=== PATIENT | female | born 1965 | race Caucasian/White ===

== ENCOUNTER 2018-02-05 00:37 | Emergency (ER) | payer MEDICARE, MEDICAID ==
[2018-02-05 01:38] LABS: EGFR Non-African American 50.3 (>60)
[2018-02-05 02:05] LABS: ABS Basophils 0.1 10^3/ul (0-0.2); ABS Eosinophils 0.2 10^3/ul (0-0.6); ABS Lymphocytes 1.1 10^3/ul (1.0-4.8); ABS Monocytes 0.6 10^3/ul (0-0.8); ABS Neutrophils 9.8 10^3/ul (1.5-7.7); ABS Nucleated RBC 0 10^3/ul; Eosinophil % 1.4 % (0-6); Hematocrit 42 % (35-47); Hemoglobin 13.9 g/dl (12.0-16.0); Lymphocyte % 9.3 % (25-47); Mean Corpuscular HGB Conc 33 g/dl (31-36); Mean Corpuscular Hemoglobin 31 pg (27-31); Mean Corpuscular Volume 93 fL (80-97); Mean Platelet Volume 9.9 um3 (7.4-10.4); Nucleated Red Blood Cells % 0.1; Platelet Count 157 10^3/ul (150-450); Red Blood Count 4.53 10^6/ul (4.00-5.40); Red Cell Distribution Width 15 % (10.5-15); White Blood Count 11.8 10^3/ul (3.5-10.8)
[2018-02-05 03:28] LABS: Urine Appearance Clear; Urine Blood Negative (Negative); Urine Color Yellow; Urine Ketones Negative (Negative); Urine Protein Negative (Negative); Urine Specific Gravity 1.014 (1.010-1.030); Urine Urobilinogen Negative (Negative)
--- NOTE | 2018-02-05 05:32 | ED ---
Massimo Cr Tariq, scribed for Adriano Aleman MD on 02/05/18 at 0114 . Substance Abuse/Use - HPI Summary HPI Summary: A 52 y/o F pt CLARK presents to the ED s/p overdose. Pt stated she took 6-8 Oxycodone 10 (325 mg) at 2000. As per triage, "Pt states "I don't know why I took them" Pt then reports taking medication d/t back pain. Oxycodone/ Acetaminophen pt consumed is not prescribed to her but rather her . EMS report PD administered "one round" of intranasal Narcal and pt aroused. quality assurance monitor applied with noted NSR and HR 79. Pt reports this is the second time she has overdosed. Dr. Aleamn in assessing pt." According to the pt, this is not the first time for substance abuse. She stated that she did not take all the oxycodone 10 pills all at once. Normally she takes Oxycodone 5 (prescribed to her), thinks she took 4-5 today. Does not think she has addiction. As per , pt took 6-8 pills over the course of the day, took regular prescription meds before bed at 2200. - History Of Current Complaint Chief Complaint: EDOverdose Stated Complaint: OVERDOSE Time Seen by Provider: 02/05/18 00:42 Hx Obtained From: Patient - Allergies/Home Medications Allergies/Adverse Reactions: Allergies Allergy/AdvReac Type Severity Reaction Status Date / Time No Known Allergies Allergy Verified 02/05/18 04:50 PMH/Surg Hx/FS Hx/Imm Hx Endocrine/Hematology History: Denies: Hx Diabetes, Hx Systemic Lupus Erythematosus Cardiovascular History: Denies: Hx Congestive Heart Failure, Hx Hypertension, Hx Pacemaker/ICD Respiratory History: Reports: Hx Asthma, Other Respiratory Problems/Disorders - OCCASIONAL WHEEZING, NONE TODAY, SMOKER Denies: Hx Pneumonia GI History: Reports: Hx Gall Bladder Disease - gall bladder removed, Hx Gastroesophageal Reflux Disease - HISTORY OF WITH NO PROBLEMS SINCE CHOLECYSTECTOMY Denies: Hx Ulcer History: Denies: Hx Dialysis, Hx Renal Disease Musculoskeletal History: Reports: Hx Arthritis - LEFT THUMB Denies: Hx Rheumatoid Arthritis Sensory History: Denies: Hx Cataracts, Hx Contacts or Glasses, Hx Vision Problem, Hx Deafness , Hx Hearing Aid Opthamlomology History: Denies: Hx Cataracts, Hx Contacts or Glasses, Hx Vision Problem Neurological History: Denies: Hx Dementia, Hx Headaches, Hx Migraine Psychiatric History: Reports: Hx Anxiety - ON MEDICATION, Hx Depression Denies: Hx Panic Disorder - Cancer History Hx Chemotherapy: No Hx Radiation Therapy: No - Surgical History Surgery Procedure, Year, and Place: shunt placement 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 BILATERAL CARPAL TUNNEL. GALLBLADDER. TUBAL LIGATION. LEFT THUMB SURGERY. X2 Hx Anesthesia Reactions: No - Immunization History Date of Tetanus Vaccine: Unk Date of Influenza Vaccine: None Infectious Disease History: No Infectious Disease History: Denies: Hx Clostridium Difficile, Hx Hepatitis, Hx Human Immunodeficiency Virus (HIV), Hx of Known/Suspected MRSA, Hx Shingles, Hx Tuberculosis, Hx Known/ Suspected VRE, Hx Known/Suspected VRSA, History Other Infectious Disease, Traveled Outside the in Last 30 Days - Social History Alcohol Use: None Substance Use Type: Reports: Marijuana, Other Substance Use Comment - Amount & Last Used: opiates Smoking Status (MU): Heavy Every Day Tobacco Smoker Review of Systems Negative: Fever All Other Systems Reviewed And Are Negative: No Physical Exam - Summary Physical Exam Summary: Appearance: Well appearing, no pain distress. Course voice. Tremulous. Skin: warm, dry, reflects adequate perfusion Head/face: normal Eyes: EOMI, ALEXANDRA ENT: normal Neck: supple, non-tender Respiratory: Diffuse scattered wheezing Cardiovascular: RRR, pulses symmetrical Abdomen: abdominal pain Bowel Sounds: present Musculoskeletal: normal, strength/ROM intact. No LE edema. No track guevara on arms Neuro: normal, sensory motor intact, A&Ox3 Psych: No SI, No HI Triage Information Reviewed: Yes Vital Signs On Initial Exam: Initial Vitals Temp Pulse Resp BP Pulse Ox 97.1 F 79 20 110/62 97 02/05/18 00:49 02/05/18 00:49 02/05/18 00:49 02/05/18 00:49 02/05/18 00:49 Vital Signs Reviewed: Yes Diagnostics - Vital Signs Vital Signs Temp Pulse Resp BP Pulse Ox 02/05/18 00:49 97.1 F 79 20 110/62 97 - Laboratory Lab Results: Lab Results 02/05/18 02/05/18 02/05/18 Range/Units 01:14 01:14 03:06 WBC 11.8 H (3.5-10.8) 10^3/ul RBC 4.53 (4.00-5.40) 10^6/ul Hgb 13.9 (12.0-16.0) g/dl Hct 42 (35-47) % MCV 93 (80-97) fL MCH 31 (27-31) pg MCHC 33 (31-36) g/dl RDW 15 (10.5-15) % Plt Count 157 (150-450) 10^3/ul MPV 9.9 (7.4-10.4) um3 Neut % (Auto) 83.7 H (38-83) % Lymph % (Auto) 9.3 L (25-47) % Johnston % (Auto) 5.1 (0-7) % Eos % (Auto) 1.4 (0-6) % Baso % (Auto) 0.5 (0-2) % Absolute Neuts (auto) 9.8 H (1.5-7.7) 10^3/ul Absolute Lymphs (auto) 1.1 (1.0-4.8) 10^3/ul Absolute Monos (auto) 0.6 (0-0.8) 10^3/ul Absolute Eos (auto) 0.2 (0-0.6) 10^3/ul Absolute Basos (auto) 0.1 (0-0.2) 10^3/ul Absolute Nucleated RBC 0 10^3/ul Nucleated RBC % 0.1 Sodium 131 L (135-145) mmol/L Potassium 4.3 (3.5-5.0) mmol/L Chloride 101 (101-111) mmol/L Carbon Dioxide 23 (22-32) mmol/L Anion Gap 7 (2-11) mmol/L BUN 10 (6-24) mg/dL Creatinine 1.14 H (0.51-0.95) mg/dL Est GFR ( Amer) 64.6 (>60) Est GFR (Non-Af Amer) 50.3 (>60) BUN/Creatinine Ratio 8.8 (8-20) Glucose 154 H (70-100) mg/dL Calcium 8.8 (8.6-10.3) mg/dL Total Bilirubin 0.20 (0.2-1.0) mg/dL AST 41 H (13-39) U/L ALT 32 (7-52) U/L Alkaline Phosphatase 97 (34-104) U/L Total Protein 6.7 (6.4-8.9) g/dL Albumin 3.8 (3.2-5.2) g/dL Globulin 2.9 (2-4) g/dL Albumin/Globulin Ratio 1.3 (1-3) TSH Pending Urine Color Urine Appearance Urine pH (5-9) Ur Specific Secretary (1.010-1.030) Urine Protein (Negative) Urine Ketones (Negative) Urine Blood (Negative) Urine Nitrate (Negative) Urine Bilirubin (Negative) Urine Urobilinogen (Negative) Ur Leukocyte Esterase (Negative) Urine Glucose (Negative) Salicylates < 2.50 (<30) mg/dL Urine Opiates Screen (None Detect) Acetaminophen 17 < 15 mcg/mL Ur Barbiturates Screen (None Detect) Ur Phencyclidine Scrn (None Detect) Ur Amphetamines Screen (None Detect) U Benzodiazepines Scrn (None Detect) Urine Cocaine Screen (None Detect) U Cannabinoids Screen (None Detect) Serum Alcohol < 10 (<10) mg/dL 02/05/18 02/05/18 Range/Units 03:15 03:15 WBC (3.5-10.8) 10^3/ul RBC (4.00-5.40) 10^6/ul Hgb (12.0-16.0) g/dl Hct (35-47) % MCV (80-97) fL MCH (27-31) pg MCHC (31-36) g/dl RDW (10.5-15) % Plt Count (150-450) 10^3/ul MPV (7.4-10.4) um3 Neut % (Auto) (38-83) % Lymph % (Auto) (25-47) % Johnston % (Auto) (0-7) % Eos % (Auto) (0-6) % Baso % (Auto) (0-2) % Absolute Neuts (auto) (1.5-7.7) 10^3/ul Absolute Lymphs (auto) (1.0-4.8) 10^3/ul Absolute Monos (auto) (0-0.8) 10^3/ul Absolute Eos (auto) (0-0.6) 10^3/ul Absolute Basos (auto) (0-0.2) 10^3/ul Absolute Nucleated RBC 10^3/ul Nucleated RBC % Sodium (135-145) mmol/L Potassium (3.5-5.0) mmol/L Chloride (101-111) mmol/L Carbon Dioxide (22-32) mmol/L Anion Gap (2-11) mmol/L BUN (6-24) mg/dL Creatinine (0.51-0.95) mg/dL Est GFR ( Amer) (>60) Est GFR (Non-Af Amer) (>60) BUN/Creatinine Ratio (8-20) Glucose (70-100) mg/dL Calcium (8.6-10.3) mg/dL Total Bilirubin (0.2-1.0) mg/dL AST (13-39) U/L ALT (7-52) U/L Alkaline Phosphatase (34-104) U/L Total Protein (6.4-8.9) g/dL Albumin (3.2-5.2) g/dL Globulin (2-4) g/dL Albumin/Globulin Ratio (1-3) TSH Urine Color Yellow Urine Appearance Clear Urine pH 5.0 (5-9) Ur Specific Secretary 1.014 (1.010-1.030) Urine Protein Negative (Negative) Urine Ketones Negative (Negative) Urine Blood Negative (Negative) Urine Nitrate Negative (Negative) Urine Bilirubin Negative (Negative) Urine Urobilinogen Negative (Negative) Ur Leukocyte Esterase Negative (Negative) Urine Glucose Negative (Negative) Salicylates (<30) mg/dL Urine Opiates Screen Presumptive positive A (None Detect) Acetaminophen mcg/mL Ur Barbiturates Screen None detected (None Detect) Ur Phencyclidine Scrn None detected (None Detect) Ur Amphetamines Screen None detected (None Detect) U Benzodiazepines Scrn None detected (None Detect) Urine Cocaine Screen None detected (None Detect) U Cannabinoids Screen Presumptive positive A (None Detect) Serum Alcohol (<10) mg/dL Result Diagrams: 02/05/18 01:14 02/05/18 01:14 Lab Statement: Any lab studies that have been ordered have been reviewed, and results considered in the medical decision making process. - EKG 0050 Cardiac Rate: NL - 68 bpm EKG Rhythm: Sinus Rhythm ST Segment: Normal - V1 and V2 EKG Interpretation: normal axis, normal interval Re-Evaluation - Re-Evaluation First Eval Re-Evaluation Time: 02:45 Comment: Drowsy, arrousable, no withdrawl Sx, narcan wore off while opioids still working. Second Eval Re-Evaluation Time: 05:17 Change: Improved Comment: patient is moving around on her own, arrousable, up and about the ED, less drowsy. Course/Dx - Course Course Of Treatment: Pt presents with minor withdrawal symptoms after Narcan. Inadvertent overdose on prescription pain medications along with Gabapentin and Alkapen. No singly large injection, nontoxic, Tylenol levels. Pt got drowsy again became after Narcan wore off require observation on telemetry and monitoring until fully sober. She used husbands prescription Percocet which is much stronger than her oxycodone. Dx of inadvertent opioid overdose, opiate abuse. Patient sobered here and return to functional capacity as demonstrated by clear speech, steady gait and logical thinking. She was provided for outpatient addiction resources. She tells me she has a therapy appointment at 10 AM today and she will discuss this with her therapist. - Diagnoses Differential Diagnosis/HQI/PQRI: Positive: Other - Intentional versus unintentional overdose, polypharmacy overdose, Tylenol toxicity Provider Diagnoses: Opiate overdose, Opiate abuse, continuous Discharge - Sign-Out/Discharge Documenting (check all that apply): Discharge/Admit/Transfer - Discharge - Discharge Plan Condition: Improved Disposition: HOME Patient Education Materials: Opioid Dependence (ED), Opioid Overdose (ED) Referrals: [facility] [Provider Group] Additional Instructions: Call today for follow-up. You have been provided with resources to help you with your addiction. See her therapist as scheduled today at 10 AM. Never take medications that are not prescribed to you. There are multiple resources within the community they can help with opiate addiction. - Billing Disposition and Condition Condition: IMPROVED Disposition: Home The documentation as recorded by the Massimo bradley Tariq accurately reflects the service I personally performed and the decisions made by me, Adriano Aleman MD.
[2018-02-05 05:42] VITALS: BP 108/71
== END 2018-02-05 05:41 | disposition home or self-care (01) ==
LOC: ED 00:37
DX: T40.601A Poisoning by unspecified narcotics, accidental (unintentional), initial encounter (principal); F11.10 Opioid abuse, uncomplicated; F41.9 Anxiety disorder, unspecified; F17.200 Nicotine dependence, unspecified, uncomplicated
CPT/HCPCS: 36415; 80053; 80307; 80320; 80329; 81003; 84443; 85025; 93005; 99285; G0480

== ENCOUNTER 2018-03-28 10:40 | Emergency (ER) | payer MEDICARE, MEDICAID ==
[2018-03-28] MEDS ORDERED: methylPREDNISolone 125 MG* 2 ML VIAL IV ONE (11:17)
[2018-03-28] MEDS ORDERED: Albuterol/Ipratropium NEB.SOL* Albuterol 2.5 MG/Ipratropium 0.5 MG 3 ML INH ONE (11:18)
[2018-03-28] MEDS ORDERED: Ondansetron INJ* 2 MG/ML VIAL IV ONE (11:19)
[2018-03-28] MEDS ORDERED: NS 0.9% 1000 ML* 1,000 ML IV ONE (11:19)
[2018-03-28 11:29] LABS: ABS Basophils 0 10^3/ul (0-0.2); ABS Eosinophils 0 10^3/ul (0-0.6); ABS Lymphocytes 0.7 10^3/ul (1.0-4.8); ABS Monocytes 0.5 10^3/ul (0-0.8); ABS Neutrophils 6.4 10^3/ul (1.5-7.7); ABS Nucleated RBC 0 10^3/ul; Eosinophil % 0.4 % (0-6); Hematocrit 43 % (35-47); Hemoglobin 14.3 g/dl (12.0-16.0); Lymphocyte % 9.5 % (25-47); Mean Corpuscular HGB Conc 34 g/dl (31-36); Mean Corpuscular Hemoglobin 30 pg (27-31); Mean Corpuscular Volume 89 fL (80-97); Mean Platelet Volume 8.6 um3 (7.4-10.4); Nucleated Red Blood Cells % 0; Platelet Count 233 10^3/ul (150-450); Red Blood Count 4.78 10^6/ul (4.00-5.40); Red Cell Distribution Width 14 % (10.5-15); White Blood Count 7.6 10^3/ul (3.5-10.8)
[2018-03-28 12:00] LABS: EGFR Non-African American 109.6 (>60)
--- OUTSIDE RECORDS SUMMARY | 2018-03-28 12:09 | XMS REPORT ---
:1965 External Reference #:[id number] Author Organization [facility] Address [address] [place] [address] Phone [phone] Care Team Providers Name Role Phone Dong Allred MD Primary Care Physician Unavailable Payers Type Date Identification Numbers Payment Provider Subscriber Medicare Primary Effective: PayID: [id number] Medicare - Bswny Ana Olsonter 2017 [address] [place] [address] Medigap Part B Expires: Policy Number: Medicaid/Computer Ana Burnham 2015 [id number] [employer] Name: 1 1 [address] PayID: [id number] [place] [address] Health Maintenance Effective: Policy Number: Blue Choice Ana Burnham [facility] (O) 05/20/[id number] [facility] Expires: 02/16/2018 PayID: [id number] [address] [address] [place] [address] Medigap Part B Effective: Policy Number: Medicaid After Ana Burnham 02/17/2018 [id number] Medicare [employer] Name: 2 1 [address] PayID: [id number] [place] [address] Problems Date Description Provider Status Onset: 08/07/2013 Headache Marnie Da Silva M.D. 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 [place] Work Status Not Currently Working Cigarette Use Current Cigarette Smoker 1 Pack Daily ETOH Use Denies alcohol use Recreational Drug Use Denies Drug Use Smoking Patient is a current smoker, smokes every day Daily Caffeine Consumes on average 2 cups of coffee per day Allergies, Adverse Reactions, Alerts Date Description Reaction Status Severity Comments 08/07/2013 NKDA active Medications Medication Date Status Form Strength Qnty SIG Indications Ordering Provider Imitrex 03/19 Active Tablets 25mg 12tab take one G43.009 Dong s pill at [facility], onset of MD migraine symptoms, can take another in 2 hours. limit 2/day. Chantix 07/24 Active Tablets 0.5mg X 53tab take as Z72.0 Tiana Starting 11 & 1 mg s directed on Marvin Kerns X 42 package ORTHOPEDIC NURSE-C insert Chantix 07/24 Active Tablets 1mg 60tab 1 by mouth R05 Tiana Continuing s twice a day Hortencia Kerns-Claudia Citalopram 07/18 Active Tablets 10mg 1 by mouth F32.9 Tiana Hydrobromide every day JANINA Kerns Montelukast 05/08 Active Tablets 10mg 30tab take one J30.9 Dong Sodium s tablet by Chalino, mouth at bedtime Betamethasone 04/13 Active Lotion 0.05% 60uni apply to Tiana Dipropionate ts nose twice Wilver daily as JUNIOR-Claudia needed Albuterol 05/22 Active Nebulizer 0.63mg/3M 75ml 3 466.0 Tiana Sulfate L milliliters Wilver, via ORTHOPEDIC NURSE-C nebulizer every 4-6 hours as needed max of four times a day Proair HFA 02/09 Active Aerosol 108(90Bas 1unit 2 puffs Dong e) s every 4-6 [facility], mcg/Act hours as MD needed Topiramate 01/10 Active Tablets 100mg 30tab take 1 R51 Dong /2013 s tablet by Chalino, mouth once MD daily Gabapentin Active Tablets 800mg take one F41.9 Unknown /0000 tablet by mouth four times a day Wellbutrin SR Active Tablets ER 300mg 1 tab po at Unknown /0000 12HR noon daily Mirtazapine Active Tablets 30mg Unknown /0000 Buspirone HCL Active Tablets 15mg 1 tab by F41.9 Unknown /0000 mouth two times a day Butalbital-Acet 07/24 Hx Tablets 50-325mg 30tab take one to Dong aminophen s two tablets Chalino, - by mouth 03/19 every 4 to hours as needed for headache Azithromycin 07/04 Hx Tablets 250mg 6tabs take 2 R05 Dong tablets by Chalino, - mouth one 07/24 time take one daily for 4 days Trimethoprim 05/08 Hx Solution 96384-5.1 10ml apply 1 drop H10.9 Vinayak Sulfate/Polymyx Unit/ML-% to affected Sabrina in B Sulfate - eye 4 times III, ORTHOPEDIC NURSE-C 07/24 daily for days Oxybutynin 02/21 Hx Tablets 5mg 60tab take one Tiana Chloride s tablet by Wilver, - mouth twice ORTHOPEDIC NURSE-C 05/08 a day for bladder spasms Detrol 01/17 Hx Tablets 2mg 60tab Take 1 Shawnti R. s Tablet By Yung, - Mouth Twice ORTHOPEDIC NURSE-C 10/15 Prednisone 12/08 Hx Tablets 20mg 14tab take 2 tabs M54.31 Tiana s by mouth Wilver, - every day x ORTHOPEDIC NURSE-C 01/17 7 Oxybutynin 09/11 Hx Tablets 5mg 60tab take one R32 Tiana Chloride s tablet by Wilver, - mouth twice ORTHOPEDIC NURSE-C 01/17 a day for bladder spasms Wellbutrin XL 07/18 Hx Tablets ER 150mg 30tab 1 by mouth Tiana 24HR s every day Wilver, - ORTHOPEDIC NURSE-C 07/18 Advair HFA 07/18 Hx Aerosol 230-21mcg 8gm 1 inhalation Tiana /Act twice daily, Wilver, - then rinse ORTHOPEDIC NURSE-C 07/24 out mouth Cefuroxime 05/08 Hx Tablets 250mg 24tab 1 by mouth J30.9 Tiana Axetil s twice a day Wilver, - x 14 days ORTHOPEDIC NURSE-C 07/18 Gabapentin 03/21 Hx Tablets 600mg 90tab take one Tiana s tablet by Wilver, - mouth three ORTHOPEDIC NURSE-C 04/13 times a day Oxycodone HCL 03/21 Hx Tablets 5mg 60tab take one Dong s tablet by Chalino, - mouth every MD 03/19 6 hours needed for pain; maximum daily dose=3 Gabapentin 03/01 Hx Capsules 300mg 180ca 2 tab po at F41.9 ps bedtime, Wilver, - then 1 tab ORTHOPEDIC NURSE-C 04/13 po in the morning and midday, as this dose is tolerated you can increase to 2 po tid Lamictal 11/03 Hx Tablets 25mg 50tab 1 tabs by Tiana s mouth every Wilver, - day x 14 ORTHOPEDIC NURSE-C 03/01 noe then tabs by mouth every day x 14 days, then 3 tabs by mouth x 1 week Xanax 09/30 Hx Tablets 0.25mg 60tab 1 by mouth s two times a Wilver, - day as ORTHOPEDIC NURSE-C 09/11 needed anxiety. Citalopram 09/30 Hx Tablets 20mg 30tab take 1 tab F32.9 Tiana Hydrobromide s po daily Wilver, - ORTHOPEDIC NURSE-C 07/18 Lorazepam 08/24 Hx Tablets 0.5mg 30thi 1 by mouth rty twice a day Wilver, - if needed ORTHOPEDIC NURSE-C 09/30 for anxiety Sertraline HCL 07/31 Hx Tablets 25mg 30tab 1 by mouth 300.00 Tiana s every day, Wilver, - replaces ORTHOPEDIC NURSE-C 08/24 cymbalta Cymbalta 07/[address] 60mg 30cap 1 by mouth Tiana Part s every day Wilver, - ORTHOPEDIC NURSE-C 08/24 Cymbalta 06/[address] 30mg 30cap 1 by mouth 300.00 Tiana Part s every day Wilver, - ORTHOPEDIC NURSE-C 06/30 Cymbalta 06/[address] 20mg 30cap take 2 by Tiana Part s mouth every Wilver, - other day ORTHOPEDIC NURSE-C 07/13 for 1 week then 1 capsule every day Clonidine HCL 06/30 Hx Tablets 0.1mg 30tab 1 by mouth 300.00 Tiana s twice a day Wilver, - or three ORTHOPEDIC NURSE-C 08/24 times a day as needed anxiety and depression Clonidine HCL 06/30 Hx Tablets 0.1mg 90tab 1 by mouth 300.00 s twice a day Wilver, - or three ORTHOPEDIC NURSE-C 08/24 times a day as needed anxiety Cymbalta 06/[address] 20mg 30cap Take 1 po Part s every other Wilver, - day for 1 ORTHOPEDIC NURSE-C 06/30 week then capsule every day Azithromycin 05/22 Hx Tablets 500mg 2tabs take 2 tabs 466.0 by mouth Wilver, - today ORTHOPEDIC NURSE-C 07/31 Prednisone 05/22 Hx Tablets 20mg 14tab take 40 mg 466.0 s po x 7 days Wilver, - ORTHOPEDIC NURSE-C 08/24 Guaifenesin-Cod 05/22 Hx Syrup 100-10mg/ 240ml 1-2 teaspoon 466.0 5ML every 4-6 Wilver, - hours as ORTHOPEDIC NURSE-C 09/24 needed Clonidine HCL 05/04 Hx Tablets 0.1mg 90tab 1 by mouth 300.00 Marnie s twice a day Jose Da Silva, - or three M.DJackie 06/17 times a day as needed anxiety and depression Oxycodone-Aceta 03/05 Hx Tablets 5-325mg 5tabs take one Tiana min every 8 Wilver, - hours for ORTHOPEDIC NURSE-C 03/21 severe /2016 headache pain Risperidone 02/09 Hx Tablets 4mg 30tab take one 311 Tiana s tablet by Wilver, - mouth at [facility] 09/24 bedtime Oxycodone-Aceta 01/08 Hx Tablets 7.5-325mg 90tab one or two Marnie minophen s every 8 Jose Da Silva, - hours M.D. 03/05 Citalopram 11/06 Hx Tablets 40mg 30tab 1 by mouth 311 Marnie Hydrobromide s every day Jose Da Silva, - M.D. 06/30 Risperidone 11/06 Hx Tablets 1mg 30tab take one to 311 Marnie s two tablets Jose Da Silva, - by mouth in M.D. 02/09 the evening Citalopram 08/29 Hx Tablets 20mg 30tab 1 po qd 311 Marnie Hydrobromide s Jose Da Silva, - M.DJackie 11/06 Gabapentin 08/07 Hx Capsules 300mg 90cap 1 po tid Marnie /2013 s Jose Da Silva, - M.D. 01/08 Oxycodone/Aceta 08/07 Hx Tablets 10-325mg 90tab one or two Marnie minophen s every 6 Jose Da Silva, - hours as M.D. 01/08 needed for pain Topamax 08/07 Hx Tablets 25mg 42tab take one 784.0 Marnie /2012 s tablet po Jose Da Silva, - daily for M.D. 08/29 one week, then increase to two tablets daily for one week, then three tablets daily for one we Clonazepam Hx Tablets 1mg take one Unknown /0000 tablet by - mouth every 03/19 8 hours as needed for anxiety; maximum daily dose=3 Immunizations CPT Code Status Date Vaccine Lot # [id number] Given 05/08/2017 Influenza Virus Vaccine, Quadrivalent, 3 Yr > [id number] Quad, Preserv Free 15640 Given 04/13/2016 Tdap (Adacel) [id number] Given 04/13/2016 Influenza Virus Vaccine, Quadrivalent, 3 Yr > [id number] Quad, Preserv Free 14357 Given 05/04/2014 Influenza Virus Vaccine, Quadrivalent, 3 Yr > [id number] Quad, Preserv Free [id number] Refused 09/26/2015 Influenza Virus Vaccine, Quadrivalent, 3 Yr > Quad , Preserv Free Vital Signs Date Vital Result Comment 03/19/2018 Weight 178.00 lb Weight in kg's 80.741 BP Systolic 128 mmHg BP Diastolic 76 mmHg Heart Rate 80 /min Body Temperature 98.3 F Respiratory Rate 16 /min 10/15/2017 Weight 170.00 lb Weight in kg's 77.112 BP Systolic 104 mmHg BP Diastolic 60 mmHg Heart Rate 73 /min Body Temperature 97.3 F Respiratory Rate 18 /min O2 % BldC Oximetry 97 % 07/24/2017 Weight 160.00 lb Weight in kg's 72.576 BP Systolic 110 mmHg BP Diastolic 80 mmHg Heart Rate 88 /min Body Temperature 98.9 F Height 59 inches 4'11" BMI (Body Mass Index) 32.3 kg/m2 O2 % BldC Oximetry 95 % 07/04/2017 Weight 163.00 lb Weight in kg's 73.937 BP Systolic 100 mmHg BP Diastolic 70 mmHg Heart Rate 84 /min Body Temperature 97.8 F Ibuprofen at 830 Respiratory Rate 24 /min O2 % BldC Oximetry 98 % 05/22/2017 Weight 152.00 lb Weight in kg's 68.947 Heart Rate 74 /min Body Temperature 97.8 F Respiratory Rate 20 /min O2 % BldC Oximetry 98 % 05/08/2017 Weight 149.00 lb Weight in kg's 67.586 Heart Rate 72 /min Body Temperature 96.8 F Respiratory Rate 20 /min Right Visual Acuity Distance 20/40 Left Visual Acuity Distance 20/30 Both Visual Acuity Distance 20/25 O2 % BldC Oximetry 96 % 01/17/2017 Weight 167.00 lb Weight in kg's 75.751 BP Systolic 120 mmHg BP Diastolic 74 mmHg Heart Rate 58 /min Body Temperature 97.5 F Respiratory Rate 16 /min 12/08/2016 Weight 163.00 lb Weight in kg's 73.937 BP Systolic 108 mmHg BP Diastolic 86 mmHg Heart Rate 68 /min Body Temperature 97.6 F Respiratory Rate 16 /min O2 % BldC Oximetry 98 % 09/11/2016 Weight 167.00 lb Weight in kg's 75.751 BP Systolic 116 mmHg BP Diastolic 78 mmHg Heart Rate 82 /min Body Temperature 97.1 F Respiratory Rate 16 /min 07/18/2016 Weight 157.00 lb Weight in kg's 71.215 BP Systolic 110 mmHg BP Diastolic 68 mmHg Heart Rate 60 /min Body Temperature 96.9 F Respiratory Rate 12 /min 05/08/2016 Weight 144.00 lb Weight in kg's 65.318 BP Systolic 100 mmHg BP Diastolic 60 mmHg Heart Rate 64 /min Body Temperature 97.7 F Respiratory Rate 20 /min 04/13/2016 Weight 139.00 lb Weight in kg's 63.050 BP Systolic 106 mmHg BP Diastolic 68 mmHg Heart Rate 80 /min Body Temperature 97.9 F Respiratory Rate 14 /min Height 60 inches 5'0" BMI (Body Mass Index) 27.1 kg/m2 03/21/2016 Weight 142.00 lb Weight in kg's 64.411 BP Systolic 120 mmHg BP Diastolic 62 mmHg Heart Rate 68 /min 02/28/2016 Weight 138.00 lb Weight in kg's 62.597 BP Systolic 100 mmHg BP Diastolic 60 mmHg Heart Rate 80 /min 02/07/2016 Weight 139.00 lb Weight in kg's 63.050 BP Systolic 110 mmHg BP Diastolic 65 mmHg Heart Rate 72 /min 09/24/2015 Weight 140.00 lb Weight in kg's 63.504 BP Systolic 96 mmHg BP Diastolic 64 mmHg Heart Rate 72 /min Height 60 inches 5'0" BMI (Body Mass Index) 27.3 kg/m2 03/01/2015 Weight 141.00 lb Weight in kg's 63.958 BP Systolic 110 mmHg BP Diastolic 80 mmHg Heart Rate 96 /min 09/30/2014 Weight 147.00 lb Weight in kg's 66.679 Heart Rate 84 /min Body Temperature 97.9 F 08/24/2014 Weight 150.00 lb Weight in kg's 68.040 BP Systolic 122 mmHg BP Diastolic 78 mmHg Heart Rate 84 /min 07/31/2014 Weight 150.00 lb Weight in kg's 68.040 BP Systolic 100 mmHg BP Diastolic 70 mmHg Heart Rate 84 /min 07/13/2014 Weight 156.00 lb Weight in kg's 70.762 BP Systolic 94 mmHg BP Diastolic 60 mmHg Heart Rate 68 /min 06/30/2014 Weight 144.00 lb Weight in kg's 65.318 BP Systolic 98 mmHg BP Diastolic 42 mmHg Heart Rate 80 /min 06/17/2014 Weight 155.00 lb Weight in kg's 70.308 BP Systolic 110 mmHg BP Diastolic 74 mmHg Heart Rate 60 /min 05/22/2014 Weight 148.00 lb Weight in kg's 67.133 BP Systolic 116 mmHg BP Diastolic 64 mmHg Heart Rate 84 /min Body Temperature 98.4 F O2 % BldC Oximetry 94 % 05/04/2014 Weight 151.00 lb Weight in kg's 68.494 BP Systolic 100 mmHg BP Diastolic 70 mmHg Heart Rate 66 /min 03/12/2014 Weight 150.00 lb Weight in kg's 68.040 BP Systolic 110 mmHg BP Diastolic 64 mmHg Heart Rate 60 /min 02/09/2014 Weight 144.00 lb Weight in kg's 65.318 BP Systolic 110 mmHg BP Diastolic 60 mmHg Heart Rate 60 /min 01/08/2014 Weight 152.00 lb Weight in kg's 68.947 BP Systolic 114 mmHg BP Diastolic 70 mmHg Heart Rate 72 /min 12/08/2013 Weight 143.00 lb Weight in kg's 64.865 BP Systolic 108 mmHg BP Diastolic 70 mmHg Heart Rate 64 /min 11/06/2013 Weight 142.00 lb With Boots On Weight in kg's 64.411 BP Systolic 108 mmHg BP Diastolic 70 mmHg Heart Rate 68 /min Last Menstrual Period [id number] 2013 Weight 148.00 lb Weight in kg's 67.133 BP Systolic 106 mmHg BP Diastolic 82 mmHg Heart Rate 88 /min Body Temperature 99.3 F O2 % BldC Oximetry 97 % 08/07/2013 Weight 150.00 lb Weight in kg's 68.040 BP Systolic 132 mmHg BP Diastolic 90 mmHg Heart Rate 72 /min Height 61 inches 5'1" BMI (Body Mass Index) 28.3 kg/m2 Results Test Date Test Result H/L Range Note CBC Auto Diff 07/04/2017 White Blood Count 5.1 10^3/uL 3.5-10.8 Red Blood Count 5.02 10^6/uL 4.0-5.4 Hemoglobin 15.1 g/dL 12.0-16.0 Hematocrit 46 % 35-47 Mean Corpuscular Volume 91 fL 80-97 Mean Corpuscular Hemoglobin 30 pg 27-31 Mean Corpuscular HGB Conc 33 g/dL 31-36 Red Cell Distribution Width 16 % High 10.5-15 Platelet Count 252 10^3/uL 150-450 Mean Platelet Volume 10 um3 7.4-10.4 Abs Neutrophils 3.5 10^3/uL 1.5-7.7 Abs Lymphocytes 0.9 10^3/uL Low 1.0-4.8 Abs Monocytes 0.6 10^3/uL 0-0.8 Abs Eosinophils 0.1 10^3/uL 0-0.6 Abs Basophils 0.1 10^3/uL 0-0.2 Abs Nucleated RBC 0 10^3/uL Granulocyte % 67.8 % 38-83 Lymphocyte % 18.3 % Low 25-47 Monocyte % 10.8 % High 1-9 Eosinophil % 1.9 % 0-6 Basophil % 1.2 % 0-2 Nucleated Red Blood Cells % 0.1 Comp Metabolic Panel 07/04/2017 Sodium 135 mmol/L 133-145 Chloride 104 mmol/L 101-111 Co2 Carbon Dioxide 26 mmol/L 22-32 Glucose 77 mg/dL 70-100 Blood Urea Nitrogen 9 mg/dL 6-24 Creatinine 0.86 mg/dL 0.51-0.95 BUN/Creatinine Ratio 10.5 8-20 Calcium 9.4 mg/dL 8.6-10.3 Total Protein 7.3 g/dL 6.4-8.9 Albumin 4.0 g/dL 3.2-5.2 Globulin 3.3 g/dL 2-4 Albumin/Globulin Ratio 1.2 1-3 Total Bilirubin 0.30 mg/dL 0.2-1.0 Alkaline Phosphatase 80 U/L 34-104 Alt 12 U/L 7-52 Ast 14 U/L 13-39 Egfr Non- 69.8 >60 Egfr 89.8 >60 1 Potassium 5.2 mmol/L High 3.5-5.0 Anion Gap 5 mmol/L 2-11 Laboratory test finding 07/04/2017 C Reactive Protein 17.20 mg/L High < 5.00 2 Lipid Profile (Trig/Chol/HDL) 07/04/2017 Triglycerides 132 mg/dL 3 Cholesterol 229 mg/dL 4 HDL Cholesterol 70.6 mg/dL 5 LDL Cholesterol 132 mg/dL 6 Laboratory test finding 05/22/2017 Strep Screen neg Neg Laboratory test finding 04/13/2016 Cytology SEE RESULT BELOW 7 HPV Rna Ww/Reflex Genotype Negative Negative 8 Laboratory test 02/07/2016 TSH (Thyroid 0.49 ?IU/mL 0.34-5.60 9, 10 finding Stimulating Horm) CBC Auto Diff 02/07/2016 White Blood Count 7.1 10^3/uL 3.5-10.8 9 Red Blood Count 5.21 10^6/uL 4.0-5.4 9 Hemoglobin 15.4 g/dL 12.0-16.0 9 Hematocrit 48 % High 35-47 9 Mean Corpuscular Volume 92 fL 80-97 9 Mean Corpuscular Hemoglobin 30 pg 27-31 9 Mean Corpuscular HGB Conc 32 g/dL 31-36 9 Red Cell Distribution Width 14 % 10.5-15 9 Platelet Count 189 10^3/uL 150-450 9 Mean Platelet Volume 10 um3 7.4-10.4 9 Abs Neutrophils 5.2 10^3/uL 1.5-7.7 9 Abs Lymphocytes 1.4 10^3/uL 1.0-4.8 9 Abs Monocytes 0.4 10^3/uL 0-0.8 9 Abs Eosinophils 0.1 10^3/uL 0-0.6 9 Abs Basophils 0 10^3/uL 0-0.2 9 Abs Nucleated RBC 0.01 10^3/uL 9 Granulocyte % 73.4 % 38-83 9 Lymphocyte % 19.4 % Low 25-47 9 Monocyte % 5.5 % 1-9 9 Eosinophil % 1.0 % 0-6 9 Basophil % 0.7 % 0-2 9 Nucleated Red Blood Cells % 0.2 9 Comp Metabolic Panel 02/07/2016 Sodium 142 mmol/L 133-145 9 Potassium 3.8 mmol/L 3.5-5.0 9 Chloride 106 mmol/L 101-111 9 Co2 Carbon Dioxide 26 mmol/L 22-32 9 Anion Gap 10 mmol/L 2-11 9 Glucose 61 mg/dL Low 70-100 9 Blood Urea Nitrogen 7 mg/dL 6-24 9 Creatinine 0.72 mg/dL 0.51-0.95 9 BUN/Creatinine Ratio 9.7 8-20 9 Calcium 9.4 mg/dL 8.6-10.3 9 Total Protein 7.3 g/dL 6.4-8.9 9 Albumin 4.2 g/dL 3.2-5.2 9 Globulin 3.1 g/dL 2-4 9 Albumin/Globulin Ratio 1.4 1-3 9 Total Bilirubin 0.30 mg/dL 0.2-1.0 9 Alkaline Phosphatase 74 U/L 34-104 9 Alt 7 U/L 7-52 9 Ast 11 U/L Low 13-39 9 Egfr Non- 86.1 >60 9 Egfr 110.7 >60 9, 11 Laboratory test finding 06/04/2015 Troponin I 0.07 ng/mL High <0.03 12 CBC Auto Diff 06/04/2015 White Blood Count 16.3 10^3/uL High 4.8-10.8 Red Blood Count 4.75 10^6/uL 4.0-5.4 Hemoglobin 14.2 g/dL 12.0-16.0 Hematocrit 45 % 35-47 Mean Corpuscular Volume 95 fL 80-97 Mean Corpuscular Hemoglobin 30 pg 27-31 Mean Corpuscular HGB Conc 32 g/dL 31-36 Red Cell Distribution Width 15 % 10.5-15 Platelet Count 208 10^3/uL 150-450 Mean Platelet Volume 10 um3 7.4-10.4 Abs Neutrophils 14.6 10^3/uL High 1.5-7.7 Abs Lymphocytes 1.0 10^3/uL 1.0-4.8 Abs Monocytes 0.5 10^3/uL 0-0.8 Abs Eosinophils 0 10^3/uL 0-0.6 Abs Basophils 0.1 10^3/uL 0-0.2 Abs Nucleated RBC 0 10^3/uL Granulocyte % 89.4 % High 38-83 Lymphocyte % 6.4 % Low 25-47 Monocyte % 3.2 % 1-9 Eosinophil % 0.3 % 0-6 Basophil % 0.7 % 0-2 Nucleated Red Blood Cells % 0 Laboratory test finding 06/04/2015 Acetaminophen 19 g/mL 13 Alcohol < 10 mg/dL <10 Salicylate < 2.50 mg/dL <30 Troponin I 0.04 ng/mL High <0.03 14 Serum HCG Qualitative Negative Negative Comp Metabolic Panel 06/04/2015 Sodium 131 mmol/L Low 133-145 Potassium 3.7 mmol/L 3.5-5.0 Chloride 99 mmol/L Low 101-111 Co2 Carbon Dioxide 29 mmol/L 22-32 Anion Gap 3 mmol/L 2-11 Glucose 118 mg/dL High 70-100 Blood Urea Nitrogen 12 mg/dL 6-24 Creatinine 1.23 mg/dL High 0.51-0.95 BUN/Creatinine Ratio 9.8 8-20 Calcium 8.8 mg/dL 8.6-10.3 Total Protein 7.3 g/dL 6.4-8.9 Albumin 4.2 g/dL 3.2-5.2 Globulin 3.1 g/dL 2-4 Albumin/Globulin Ratio 1.4 1-3 Total Bilirubin 0.30 mg/dL 0.2-1.0 Alkaline Phosphatase 92 U/L 34-104 Alt 41 U/L 7-52 Ast 60 U/L High 13-39 Egfr Non- 46.6 >60 Egfr 59.9 >60 15 Confirm Opiates (GC/MS) 07/13/2014 Urine Codeine Confirmation Negative ng/ mL 16 Urine Hydrocodone Confirm Negative ng/mL 17 Urine Hydromorphone Confirm 102 ng/mL 18 Urine Morphine Confirm Negative ng/mL 19 Urine Oxymorphone Confirm 69612 ng/mL 20 Urine Oxycodone Confirm 71732 ng/mL 21 Urine Opiates Interpretation Positive. 22 THC Confirmation Urine 07/13/2014 Urine Carboxy THC Confirm 322 ng/mL 23 Urine THC Interpretation Positive. 24 Drug Abuse 20 Urine 07/13/2014 Urine Amphetamine Negative ng/mL 25 Urine Barbiturates Negative ng/mL 26 Urine Benzodiazepines Negative ng/mL 27 Urine Cocaine Negative ng/mL 28 Urine Methadone Negative ng/mL 29 Urine Opiates Presumptive Posi <SEE NOTE> ng/mL 30 Urine Phencyclidine Negative ng/mL Cutoff: 25 Urine Tetrahydrocannabinol Presumptive Posi <SEE NOTE> ng/mL Cutoff: 20 31 Urine Oxycodone Presumptive Posi <SEE NOTE> ng/mL 32 Laboratory test finding 2013 Erythrocyte Sed Rate 30 mm/Hr High 0- 14 C Reactive Protein < 0.5 mg/dL Less than 0.5 1 Because ethnic data is not always readily available, this report includes an eGFR for both -Americans and non- Americans. The National Kidney Disease Education Program (NKDEP) does not endorse the use of the MDRD equation for patients that are not between the ages of 18 and 70, are , have extremes of body size, muscle mass, or nutritional status, or are non- or non-. According to the National Kidney Foundation, irrespective of diagnosis, the stage of the disease is based on the level of kidney function: Stage Description GFR(mL/min/1.73 m(2)) 1 Kidney damage with normal or decreased GFR 90 2 Kidney damage with mild decrease in GFR 60-89 3 Moderate decrease in GFR 30-59 4 Severe decrease in GFR 15-29 5 Kidney failure <15 (or dialysis) 2 Acute inflammation: >10.00 3 Desirable: <150 Borderline High: 150-199 High: 200-499 Very High: >500 4 Desirable: <200 Borderline High: 200-239 High: >239 5 Low: <40 Desirable: 40-60 High: >60 6 Desirable: <100 Near Optimal: 100-129 Borderline High: 130-159 High: 160-189 Very High: >189 7 SEE RESULT BELOW Name: ANA ESQUIVEL : [address]: Tiana Kerns NP Acct: [id number] Unit: [id number] AGE: 50 Location: [facility] Re04/13/16 SEX: F Status: REG REF SPEC: [id number] WOODY: 04/13/16-[address] [facility] [address]: Tiana Kerns NP REQ: [id number] RECD: 04/13/161201 STATUS: SOUT _ ORDERED: IMAGE ANALYSIS, HPV/Thin Prep, HPV 16/18 GENE COMMENTS: [id number] FINAL DIAGNOSIS Negative for Intraepithelial lesion or Malignancy A. Ectocervical/Endocervical Specimen Adequacy: Satisfactory of evaluation Transformation zone component identified Patient Information: HPV: High risk HPV RNA testing regardless of pap results. HPV 16/18 Genotype Reflex Actual Specimen Date: 04/13/16 Spec Date if unknown: unknown Date Time Test Result Flag (u) Normal Range 04/13/16 1002 HPV RNA RFLX GE Negative Negative The high-risk HPV types detected by the assay include: 16, 18, 31, 33, 35, 39, 45, 51, 52, 56, 58, 59, 66, and 68. Signed (signature on file) CHRISTO Webb([facility]) 04/14 1539 This Pap test was evaluated with the assistance of the [employer] Test Imaging System. Due to cytologic findings at the cigarette and filter chief inspector microscope, comprehensive manual rescreening by a Park Attendant may be required. The Pap Smear is a screening test designed to aid in the detection of premalignant and malignant conditions of the uterine cervix. It is not a diagnostic procedure and should not be used as the sole means of detecting cervical cancer. Both false- positive and false- negative reports do occur. Depending on your risk status, a Pap smear should be obtained and evaluated every 1-3 years. END OF REPORT * ML=Testing performed at Main Lab DEPARTMENT OF PATHOLOGY, [address] [place] [address] Jim Krishnamurthy M.D. Director [facility] # [id number] 8 The high-risk HPV types detected by the assay include: 16, 18, 31, 33, 35, 39, 45, 51, 52, 56, 58, 59, 66, and 68. 9 [id number] 10 [id number] 11 Because ethnic data is not always readily available, this report includes an eGFR for both -Americans and non- Americans. The National Kidney Disease Education Program (NKDEP) does not endorse the use of the MDRD equation for patients that are not between the ages of 18 and 70, are , have extremes of body size, muscle mass, or nutritional status, or are non- or non-. According to the National Kidney Foundation, irrespective of diagnosis, the stage of the disease is based on the level of kidney function: Stage Description GFR(mL/min/1.73 m(2)) 1 Kidney damage with normal or decreased GFR 90 2 Kidney damage with mild decrease in GFR 60-89 3 Moderate decrease in GFR 30-59 4 Severe decrease in GFR 15-29 5 Kidney failure <15 (or dialysis) 12 Reference Range and Interpretation: TnI (ng/mL) Interpretation Less Than 0.03 ng/mL Not supportive of diagnosis of OR 0.03 - 0.50 ng/mL Indeterminate: suggest serial studies if clinically indicated. Greater than 0.5 ng/mL Consistent with diagnosis of OR 13 Therapeutic concentration: <50 ug/mL Toxic concentration: >120 ug/mL 14 Reference Range and Interpretation: TnI (ng/mL) Interpretation Less Than 0.03 ng/mL Not supportive of diagnosis of [place] 0.03 - 0.50 ng/mL Indeterminate: suggest serial studies if clinically indicated. Greater than 0.5 ng/mL Consistent with diagnosis of [place] 15 Because ethnic data is not always readily available, this report includes an eGFR for both -Americans and non- Americans. The National Kidney Disease Education Program (NKDEP) does not endorse the use of the MDRD equation for patients that are not between the ages of 18 and 70, are , have extremes of body size, muscle mass, or nutritional status, or are non- or non-. According to the National Kidney Foundation, irrespective of diagnosis, the stage of the disease is based on the level of kidney function: Stage Description GFR(mL/min/1.73 m(2)) 1 Kidney damage with normal or decreased GFR 90 2 Kidney damage with mild decrease in GFR 60-89 3 Moderate decrease in GFR 30-59 4 Severe decrease in GFR 15-29 5 Kidney failure <15 (or dialysis) 16 REFERENCE VALUE Cutoff: 100 17 REFERENCE VALUE Cutoff: 100 18 REFERENCE VALUE Cutoff: 100 19 REFERENCE VALUE Cutoff: 100 20 REFERENCE VALUE Cutoff: 100 21 REFERENCE VALUE Cutoff: 100 22 ADDITIONAL INFORMATION This report is intended for use in clinical monitoring and management of patients. It is not intended for use in employment-related testing. Test Performed by: [address] [address] [facility] [employer] [facility] Center: Dwight Thibodeaux M.D. 23 REFERENCE VALUE Cutoff: 3.0 24 ADDITIONAL INFORMATION This report is intended for use in clinical monitoring and management of patients. It is not intended for use in employment-related testing. Test Performed by: [address] [address] [employer] [facility] Center: Dwight Thibodeaux M.D. 25 REFERENCE VALUE Cutoff: 500 26 REFERENCE VALUE Cutoff: 200 27 REFERENCE VALUE Cutoff: 200 28 REFERENCE VALUE Cutoff: 150 29 REFERENCE VALUE Cutoff: 150 30 Presumptive Positive Drug confirmation to follow. Presumptive Positive means that the screening method is positive, but the test needs to be run by a confirmatory method before being finalized. REFERENCE VALUE Cutoff: 300 31 Presumptive Positive Drug confirmation to follow. Presumptive Positive means that the screening method is positive, but the test needs to be run by a confirmatory method before being finalized. ADDITIONAL INFORMATION This report is intended for use in clinical monitoring or management of patients. It is not intended for use in employment-related testing. 32 Presumptive Positive REVISED RESULTS Drug confirmation to follow. Presumptive Positive means that the screening method is positive, but the test needs to be run by a confirmatory method before being finalized. REFERENCE VALUE Cutoff: 100 ADDITIONAL INFORMATION This report is intended for use in clinical monitoring or management of patients. It is not intended for use in employment-related testing. PREVIOUSLY REPORTED CheckScreenResults (Reported 07/15/2014 12:36) Test Performed by: [address] [address] [employer] [facility] Center: Dwight Thibodeaux M.D. Procedures Date CPT Code Description Status 08/20/2015 Mammogram Completed 05/22/2014 22645 Nebulizer Treatment Completed Encounters Type Date Location Provider CPT E/M Dx Office Visit 10/15/2017 10:30a [place] [address] R51 M54.9 F43.12 Office Visit 07/24/2017 11:00a Main Office Tiana Kerns ORTHOPEDIC NURSE-Claudia 31279 R05 Z72.0 Office Visit 07/04/2017 10:45a [place] [address] R05 Z13.6 Office Visit 05/22/2017 11:30a Main Office Vinayak Bennett III, ORTHOPEDIC NURSE-C 23928 J06.9 Office Visit 05/08/2017 2:45p Main Office Vinayak Bennett III, ORTHOPEDIC NURSE-C 23538 H10.9 Z23 Office Visit 01/17/2017 9:00a Main Office Tianajoaquín Kerns ORTHOPEDIC NURSE-C 77869 R51 M54.9 Office Visit 12/08/2016 11:30a Main Office Tiana Kerns ORTHOPEDIC NURSE-C 72138 M54.31 Office Visit 09/11/2016 3:15p Main Office FLOR KelseyP-C 31741 G89.29 F32.9 R32 Office Visit 07/18/2016 10:45a Main Office JUNIOR Kelsey-C 26012 F32.9 G89.29 R06.2 Office Visit 05/08/2016 10:00a Main Office Tiana Kerns ORTHOPEDIC NURSE-C 20269 F41.9 J30.9 Office Visit 04/13/2016 9:00a Main Office JUNIOR Kelsey-C 38590 Z00.00 F41.9 Z23 Office Visit 03/21/2016 11:45a Main Office JUNIOR Kelsey-C 79609 F41.9 R41.3 Office Visit 02/28/2016 10:00a Main Office Tiana Kerns ORTHOPEDIC NURSE-C 89799 F41.9 R41.3 Office Visit 02/07/2016 11:00a Main Office Tiana Kerns ORTHOPEDIC NURSE-C 57738 G06.1 F41.9 Office Visit 09/24/2015 4:00p Main Office JUNIOR Kelsey-C 83391 G06.1 F41.9 Office Visit 03/01/2015 9:30a Main Office Tiana Kerns ORTHOPEDIC NURSE-C 68244 300.00 Office Visit 09/30/2014 10:00a Main Office Tiana Kerns ORTHOPEDIC NURSE-C 90268 300.00 780.93 Office Visit 08/24/2014 11:30a Main Office Tiana Kerns ORTHOPEDIC NURSE-C 26748 300.00 Office Visit 07/31/2014 9:30a Main Office Tiana Kerns ORTHOPEDIC NURSE-C 55013 300.00 Office Visit 07/13/2014 10:45a Main Office Tiana Kerns ORTHOPEDIC NURSE-C 07690 300.00 784.0 338.4 Office Visit 06/30/2014 10:30a Main Office Tiana Kerns ORTHOPEDIC NURSE-C 84076 300.00 Office Visit 06/17/2014 3:45p Main Office Tiana Kerns ORTHOPEDIC NURSE-C 74585 300.00 784.0 786.07 Office Visit 05/22/2014 2:30p Main Office Tiana Kerns ORTHOPEDIC NURSE-C 58508 466.0 Office Visit 05/04/2014 3:15p Main Office Marnie Da Silva M.D. 61199 784.0 311 300.00 V04.81 Office Visit 03/12/2014 3:00p Main Office Marnie Da Silva M.D. 17703 784.0 311 Office Visit 02/09/2014 9:30a Main Office Marnie Da Silva M.D. 03258 784.0 311 305.1 519.11 Office Visit 01/08/2014 10:15a Main Office Marnie Da Silva M.D. 12343 784.0 311 305.1 Office Visit 12/08/2013 9:45a Main Office Marnie Da Silva M.D. 53077 784.0 311 305.1 Office Visit 11/06/2013 9:30a Main Office Marnie Da Silva M.D. 98554 784.0 324.1 311 Office Visit 2013 10:15a Main Office Marnie Da Silva M.D. 10572 784.0 324.1 305.1 311 730.20 Office Visit 08/07/2013 9:15a Main Office Marnie Da Silva M.D. 59034 784.0 324.1 305.1 Plan of Care 03/19/2018 - Dong Allred, F41.9 Anxiety disorder, unspecifiedComments: She has switched over to nonaddictive, not controlled substances with the assistance of psychiatry. She is doing alright for right now.G43.009 Migraine w/ o aura, not intractable, w/o status migrainosusNew Medication:Imitrex 25 mgComments:The only controlled substance left on her medication list is butalbital. She has never tried more modern treatment like Imitrex. Her migraines are occasional, she is willing to make the switch.I sent in a prescription for Imitrex.T40.4x1A Poisoning by oth synthetic narcotics, accidental, initComments:Life-threatening overdose on prescribe narcotics-her is as well as her .She is taking steps to try to preserve her life by avoiding further prescriptions and getting into treatment.She will continue to work with [employer]F11.23 Opioid dependence with withdrawal
--- OUTSIDE RECORDS SUMMARY | 2018-03-28 12:09 | XMS REPORT ---
:1965 External Reference #:[id number] Author Organization Formerly [facility], [facility]–1983 Address [address] [place] [address] Phone [phone] Care Team Providers Name Role Phone Dong Allred MD Primary Care Physician Unavailable Payers Type Date Identification Numbers Payment Provider Subscriber Medicare Primary Effective: PayID: [id number] Medicare - Bswny Ana Olsonter 2017 [address]md [address] [place] [address] Medigap Part B Expires: Policy Number: Medicaid/Computer Ana Burnham 2015 [id number] [employer] Name: 1 1 [address] PayID: [id number] [place] [address] Health Maintenance Effective: Policy Number: Blue Choice Ana Burnham [facility] (O) 05/20/[id number] [facility] Expires: 02/16/2018 PayID: [id number] [address] [address] [place] [address] Medigap Part B Effective: Policy Number: Medicaid After Ana Burnham 02/17/2018 [id number] [employer] Name: 2 1 [address] PayID: [id number] [place] [address] Problems Date Description Provider Status Onset: 08/07/2013 Headache Marnie Da Silva M.D. 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 Active Family History Date Family Member(s) Problem(s) Comments Father due to CHF () Father Hypertension Father due to GA () Father Hypercholesterolemia Mother Cancer, Breast First Brother Atrial Fibrillation First Brother CAD First Brother GA Social History Type Date Description Comments Marital Status Smoke-Free Home is not smoke-free Occupation [employer] in the [place] Work Status Not [...] take one G43.009 Dong s pill at [facility], onset of MD migraine symptoms, can take another in 2 hours. limit 2/day. Chantix 07/24 Active Tablets 0.5mg X 53tab take as Z72.0 Tiana Starting 11 & 1 mg s directed on Marvin Kerns X 42 package HAM ROLLING MACHINE OPERATOR-C insert Chantix 07/24 Active Tablets 1mg 60tab [...] 466.0 Tiana Sulfate L milliliters Wilver, via HAM ROLLING MACHINE OPERATOR-C nebulizer every 4-6 hours as needed max of four times a day Proair HFA 02/09 Active Aerosol 108(90Bas 1unit 2 puffs Dong e) s every 4-6 [facility], mcg/Act hours as MD needed Topiramate 01/10 [...] for 4 days Trimethoprim 05/08 Hx Solution 22593-9.1 10ml apply 1 drop H10.9 Vinayak Sulfate/Polymyx Unit/ML-% to affected Sabrina in B Sulfate - eye 4 times III, HAM ROLLING MACHINE OPERATOR-C 07/24 daily for days Oxybutynin 02/21 Hx Tablets 5mg 60tab take one Tiana Chloride s tablet by Wilver, - mouth twice HAM ROLLING MACHINE OPERATOR-C 05/08 a day for bladder spasms Detrol 01/17 Hx Tablets 2mg 60tab Take 1 Shawnti R. s Tablet By Yung, - Mouth Twice HAM ROLLING MACHINE OPERATOR-C 10/15 Prednisone 12/08 Hx Tablets 20mg 14tab take 2 tabs M54.31 Tiana s by mouth Wilver, - every day x HAM ROLLING MACHINE OPERATOR-C 01/17 7 Oxybutynin 09/11 Hx Tablets 5mg 60tab take one R32 Tiana Chloride s tablet by Wilver, - mouth twice HAM ROLLING MACHINE OPERATOR-C 01/17 a day for bladder spasms Wellbutrin XL 07/18 Hx Tablets ER 150mg 30tab 1 by mouth Tiana 24HR s every day Wilver, - HAM ROLLING MACHINE OPERATOR-C 07/18 Advair HFA 07/18 Hx Aerosol 230-21mcg 8gm 1 inhalation Tiana /Act twice daily, Wilver, - then rinse HAM ROLLING MACHINE OPERATOR-C 07/24 out mouth Cefuroxime 05/08 Hx Tablets 250mg 24tab 1 by mouth J30.9 Tiana Axetil s twice a day Wilver, - x 14 days HAM ROLLING MACHINE OPERATOR-C 07/18 Gabapentin 03/21 Hx Tablets 600mg 90tab take one Tiana s tablet by Wilver, - mouth three HAM ROLLING MACHINE OPERATOR-C 04/13 times a day Oxycodone HCL 03/21 Hx Tablets 5mg 60tab take one Dong s tablet by Chalino, - mouth every MD 03/19 6 hours needed for pain; maximum daily dose=3 Gabapentin 03/01 Hx Capsules 300mg 180ca 2 tab po at F41.9 ps bedtime, Wilver, - then 1 tab HAM ROLLING MACHINE OPERATOR-C 04/13 po in the morning and midday, as this dose is tolerated you can increase to 2 po tid Lamictal 11/03 Hx Tablets 25mg 50tab 1 tabs by Tiana s mouth every Wilver, - day x 14 HAM ROLLING MACHINE OPERATOR-C 03/01 noe then tabs by mouth every day x 14 days, then 3 tabs by mouth x 1 week Xanax 09/30 Hx Tablets 0.25mg 60tab 1 by mouth s two times a Wilver, - day as HAM ROLLING MACHINE OPERATOR-C 09/11 needed anxiety. Citalopram 09/30 Hx Tablets 20mg 30tab take 1 tab F32.9 Tiana Hydrobromide s po daily Wilver, - HAM ROLLING MACHINE OPERATOR-C 07/18 Lorazepam 08/24 Hx Tablets 0.5mg 30thi 1 by mouth rty twice a day Wilver, - if needed HAM ROLLING MACHINE OPERATOR-C 09/30 for anxiety Sertraline HCL 07/31 Hx Tablets 25mg 30tab 1 by mouth 300.00 Tiana s every day, Wilver, - replaces HAM ROLLING MACHINE OPERATOR-C 08/24 cymbalta Cymbalta 07/[address] 60mg 30cap 1 by mouth Tiana Part s every day Wilver, - HAM ROLLING MACHINE OPERATOR-C 08/24 Cymbalta 06/[address] 30mg 30cap 1 by mouth 300.00 Tiana Part s every day Wilver, - HAM ROLLING MACHINE OPERATOR-C 06/30 Cymbalta 06/[address] 20mg 30cap take 2 by Tiana Part s mouth every Wilver, - other day HAM ROLLING MACHINE OPERATOR-C 07/13 for 1 week then 1 capsule every day Clonidine HCL 06/30 Hx Tablets 0.1mg 30tab 1 by mouth 300.00 Tiana s twice a day Wilver, - or three HAM ROLLING MACHINE OPERATOR-C 08/24 times a day as needed anxiety and depression Clonidine HCL 06/30 Hx Tablets 0.1mg 90tab 1 by mouth 300.00 s twice a day Wilver, - or three HAM ROLLING MACHINE OPERATOR-C 08/24 times a day as needed anxiety Cymbalta 06/[address] 20mg 30cap Take 1 po Part s every other Wilver, - day for 1 HAM ROLLING MACHINE OPERATOR-C 06/30 week then capsule every day Azithromycin 05/22 Hx Tablets 500mg 2tabs take 2 tabs 466.0 by mouth Wilver, - today HAM ROLLING MACHINE OPERATOR-C 07/31 Prednisone 05/22 Hx Tablets 20mg 14tab take 40 mg 466.0 s po x 7 days Wilver, - HAM ROLLING MACHINE OPERATOR-C 08/24 Guaifenesin-Cod 05/22 Hx Syrup 100-10mg/ 240ml 1-2 teaspoon 466.0 5ML every 4-6 Wilver, - hours as HAM ROLLING MACHINE OPERATOR-C 09/24 needed Clonidine HCL 05/04 Hx Tablets 0.1mg 90tab 1 by mouth 300.00 Marnie s twice a day Jose Da Silva, - or three M.DJackie 06/17 times a day as needed anxiety and depression Oxycodone-Aceta 03/05 Hx Tablets 5-325mg 5tabs take one Tiana min every 8 Wilver, - hours for HAM ROLLING MACHINE OPERATOR-C 03/21 severe /2016 headache pain Risperidone 02/09 Hx Tablets 4mg 30tab take one 311 Tiana s tablet by Wilver, - mouth at [facility] 09/24 bedtime Oxycodone-Aceta 01/08 Hx Tablets [...] CPT Code Status Date Vaccine Lot # [id number] Given 05/08/2017 Influenza Virus Vaccine, Quadrivalent, 3 Yr > [id number] Quad, Preserv Free 89973 Given 04/13/2016 Tdap (Adacel) [id number] 33064 Given 04/13/2016 Influenza Virus Vaccine, Quadrivalent, 3 Yr > [id number] Quad, Preserv Free 15509 Given 05/04/2014 Influenza Virus Vaccine, Quadrivalent, 3 Yr > [id number] Quad, Preserv Free 50072 Refused 09/26/2015 Influenza Virus Vaccine, Quadrivalent, 3 Yr > Quad , Preserv Free Vital Signs Date Vital Result Comment 03/28/2018 BP Systolic 130 mmHg BP Diastolic 80 mmHg Heart Rate 84 /min Body Temperature 98.4 F Respiratory Rate 24 /min O2 % BldC Oximetry 94 % 03/19/2018 Weight 178.00 lb Weight in kg's [...] Heart Rate 68 /min Last Menstrual Period [id number] 2013 Weight 148.00 lb Weight in kg's [...] Confirm Negative ng/mL 19 Urine Oxymorphone Confirm 73996 ng/mL 20 Urine Oxycodone Confirm 45024 ng/mL 21 Urine Opiates Interpretation Positive. 22 [...] High: >189 7 SEE RESULT BELOW Name: ESQUIVELANA GEN : [address]: Tiana Kerns NP Acct: [id number] Unit: [id number] AGE: 50 Location: [facility] Re04/13/16 SEX: F Status: REG REF SPEC: [id number] WOODY: 04/13/16-[address]: Tiana Kerns NP REQ: [id number] RECD: 04/13/16120 STATUS: SOUT _ ORDERED: IMAGE ANALYSIS, HPV/Thin Prep, HPV 16/18 GENE COMMENTS: [id number] FINAL DIAGNOSIS Negative for Intraepithelial lesion or [...] and 68. Signed (signature on file) CHRISTO Webb(ASCP) 04/14 1539 This Pap test was evaluated with the assistance of the Glancep Test Imaging System. Due to cytologic findings at the hydraulic repairer microscope, comprehensive manual rescreening by a Multi Care Technician may be required. The Pap Smear is [...] performed at Main Lab DEPARTMENT OF PATHOLOGY, [address] [place] [address] Jim Krishnamurthy M.D. Director [facility] # [id number] 8 The high-risk HPV types detected by the assay include: 16, 18, 31, 33, 35, 39, 45, 51, 52, 56, 58, 59, 66, and 68. 9 [id number] 10 [id number] 11 Because ethnic data is not always [...] 0.03 ng/mL Not supportive of diagnosis of [place] 0.03 - 0.50 ng/mL Indeterminate: suggest serial studies if clinically indicated. Greater than 0.5 ng/mL Consistent with diagnosis of GA 13 Therapeutic concentration: <50 ug/mL Toxic concentration: >120 ug/mL 14 Reference Range and Interpretation: TnI (ng/mL) Interpretation Less Than 0.03 ng/mL Not supportive of diagnosis of GA 0.03 - 0.50 ng/mL Indeterminate: suggest serial studies if clinically indicated. Greater than 0.5 ng/mL Consistent with diagnosis of GA 15 Because ethnic data is not always [...] use in employment-related testing. Test Performed by: [place] [address] Railroad Maintenance Clerk: Dwight Thibodeaux M.D. 23 REFERENCE VALUE Cutoff: 3.0 24 ADDITIONAL INFORMATION This report is intended for use in clinical monitoring and management of patients. It is not intended for use in employment-related testing. Test Performed by: [address] [address] Railroad Maintenance Clerk: Dwight Thibodeaux M.D. 25 REFERENCE VALUE Cutoff: [...] CheckScreenResults (Reported 07/15/2014 12:36) Test Performed by: [address] [address] Railroad Maintenance Clerk: Dwight Thibodeaux M.D. Procedures Date CPT Code Description Status 08/20/2015 Mammogram Completed 05/22/2014 23638 Nebulizer Treatment Completed Encounters Type Date Location Provider CPT E/M Dx Office Visit 03/28/2018 9:30a Main Office JANINA Beverly 50266 R06.03 Office Visit 03/19/2018 1:45p [place] [address] F41.9 G43.009 T40.4x1A F11.23 Office Visit 10/15/2017 10:30a [place] [address] R51 M54.9 F43.12 Office Visit 07/24/2017 11:00a Main Office Tiana Kerns HAM ROLLING MACHINE OPERATOR-C 63008 R05 Z72.0 Office Visit 07/04/2017 10:45a [place] [address] R05 Z13.6 Office Visit 05/22/2017 11:30a Main Office Vinayak Bennett III HAM ROLLING MACHINE OPERATOR-C 87353 J06.9 Office Visit 05/08/2017 2:45p Main Office Vinayak Bennett III HAM ROLLING MACHINE OPERATOR-C 01800 H10.9 Z23 Office Visit 01/17/2017 9:00a Main Office Tiana Kerns HAM ROLLING MACHINE OPERATOR-C 72634 R51 M54.9 Office Visit 12/08/2016 11:30a Main Office Tiana Kerns HAM ROLLING MACHINE OPERATOR-C 47480 M54.31 Office Visit 09/11/2016 3:15p Main Office JUNIOR Kelsey-C 34709 G89.29 F32.9 R32 Office Visit 07/18/2016 10:45a Main Office JUNIOR Kelsey-C 24643 F32.9 G89.29 R06.2 Office Visit 05/08/2016 10:00a Main Office Tiana Kerns HAM ROLLING MACHINE OPERATOR-C 97648 F41.9 J30.9 Office Visit 04/13/2016 9:00a Main Office Tiana Kerns HAM ROLLING MACHINE OPERATOR-C 88785 Z00.00 F41.9 Z23 Office Visit 03/21/2016 11:45a Main Office JUNIOR Kelsey-C 02922 F41.9 R41.3 Office Visit 02/28/2016 10:00a Main Office Tiana Kerns HAM ROLLING MACHINE OPERATOR-C 26660 F41.9 R41.3 Office Visit 02/07/2016 11:00a Main Office Tiana Kerns HAM ROLLING MACHINE OPERATOR-C 26804 G06.1 F41.9 Office Visit 09/24/2015 4:00p Main Office Tiana Kersn HAM ROLLING MACHINE OPERATOR-C 65321 G06.1 F41.9 Office Visit 03/01/2015 9:30a Main Office Tiana Kerns HAM ROLLING MACHINE OPERATOR-C 23868 300.00 Office Visit 09/30/2014 10:00a Main Office Tiana Kerns HAM ROLLING MACHINE OPERATOR-C 36444 300.00 780.93 Office Visit 08/24/2014 11:30a Main Office Tiana Kerns HAM ROLLING MACHINE OPERATOR-C 90863 300.00 Office Visit 07/31/2014 9:30a Main Office Tiana Kerns HAM ROLLING MACHINE OPERATOR-C 82930 300.00 Office Visit 07/13/2014 10:45a Main Office JUNIOR Kelsey-C 26162 300.00 784.0 338.4 Office Visit 06/30/2014 10:30a Main Office Tiana Kerns HAM ROLLING MACHINE OPERATOR-C 09196 300.00 Office Visit 06/17/2014 3:45p Main Office FLOR KelseyP-C 57904 300.00 784.0 786.07 Office Visit 05/22/2014 2:30p Main Office Tiana Kerns HAM ROLLING MACHINE OPERATOR-C 10747 466.0 Office Visit 05/04/2014 3:15p Main Office Marnie Da Silva M.D. 40928 784.0 311 300.00 V04.81 Office Visit 03/12/2014 3:00p Main Office Marnie Da Silva M.D. 40026 784.0 311 Office Visit 02/09/2014 9:30a Main Office Marnie Da Silva M.D. 83440 784.0 311 305.1 519.11 Office Visit 01/08/2014 10:15a Main Office Marnie Da Silva M.D. 81087 784.0 311 305.1 Office Visit 12/08/2013 9:45a Main Office Marnie Da Silva M.D. 70989 784.0 311 305.1 Office Visit 11/06/2013 9:30a Main Office Marnie Da Silva M.D. 73151 784.0 324.1 311 Office Visit 2013 10:15a Main Office Marnie Da Silva M.D. 89894 784.0 324.1 305.1 311 730.20 Office Visit 08/07/2013 9:15a Main Office Marnie Da Silva M.D. 72241 784.0 324.1 305.1 Plan of Care 03/28/2018 - Tarsha Barragan, HAM ROLLING MACHINE OPERATOR-CR06.03 Acute respiratory distressComments: no change in respiratory status with duoneb, oxygen saturation decreased, struggling to maintain oxygenation. discussed ER and she is agreeable, declines EMS, ER charge nurse notified that she is on her way
--- NOTE | 2018-03-28 12:47 | RAD ---
INDICATION: Shortness of breath. COMPARISON: Chest x-ray dated July 04, 2017 TECHNIQUE: PA and lateral views of the chest were obtained. FINDINGS: The heart and mediastinum are normal in size and contour. Again seen is lower lobe predominant increased intralobular thickening. There are no focal nodules or lobar consolidation. The medium and small airways exhibit mild bronchiectatic dilatation. Visualized bones are normal for the patient's age. There is no radiographic evidence of free air beneath the diaphragm IMPRESSION: CHRONIC APPEARANCE OF INCREASED INTERSTITIAL MARKINGS COULD BE DUE TO PULMONARY EDEMA OR INTERSTITIAL LUNG DISEASE.
[2018-03-28] MEDS ORDERED: Ibuprofen TAB* 600 MG PO ONE (13:35)
[2018-03-28] MEDS ORDERED: Ibuprofen TAB* 600 MG ONE (13:36)
[2018-03-28 14:35] VITALS: BP 112/69
--- NOTE | 2018-03-28 15:45 | ED ---
Shortness of Breath - HPI Summary HPI Summary: Patient is a 52-year-old smoker with history of COPD, opiate use and opiate overdose presenting to the ED with worsening shortness of breath over the past day. She states she has been using her at home nebulizer treatments without relief. Endorses cough with production, yellow sputum. Denies any fevers, however endorses intermittent chills. Denies any sweats. She endorses intermittent nausea when she is unable to take a deep breath. She denies any other health concerns and denies a cardiac history. Partner is at bedside. She endorses wheezing without rhonchi. She states this is normal for her, but she feels this is been worsening. She is close follow-up with her PCP, Dr. Allred. - History of Current Complaint Chief Complaint: EDUpperRespComplaint Time Seen by Provider: 03/28/18 11:06 Hx Obtained From: Patient Onset/Duration: Gradual Onset Timing: Constant Current Severity: Moderate Dyspnea At: Rest Associated Signs & Symptoms: Cough (Productive) - Risk Factors Pulmonary Embolism: Negative Cardiac: Negative Pseudomonas: Negative Tuberculosis: Negative - Allergy/Home Medications Allergies/Adverse Reactions: Allergies Allergy/AdvReac Type Severity Reaction Status Date / Time No Known Allergies Allergy Verified 03/28/18 11:02 Home Medications: Home Medications Albuterol HFA INHALER* [Ventolin HFA Inhaler*] 2 puff INH Q4H PRN 03/28/18 [ History Confirmed 03/28/18] Buprenorphine HCl/Naloxone HCl [Suboxone 8 mg-2 mg Sl Film] 1 each SL DAILY 05/07 [History Confirmed 03/28/18] Bupropion XL* [Wellbutrin XL *] 150 mg PO DAILY 03/28/18 [History Confirmed 05/07] PMH/Surg Hx/FS Hx/Imm Hx Previously Healthy: Yes Endocrine/Hematology History: Denies: Hx Diabetes, Hx Systemic Lupus Erythematosus Cardiovascular History: Denies: Hx Congestive Heart Failure, Hx Hypertension, Hx Pacemaker/ICD Respiratory History: Reports: Hx Asthma, Other Respiratory Problems/Disorders - OCCASIONAL WHEEZING, NONE TODAY, SMOKER Denies: Hx Pneumonia GI History: Reports: Hx Gall Bladder Disease - gall bladder removed, Hx Gastroesophageal Reflux Disease - HISTORY OF WITH NO PROBLEMS SINCE CHOLECYSTECTOMY Denies: Hx Ulcer History: Denies: Hx Dialysis, Hx Renal Disease Musculoskeletal History: Reports: Hx Arthritis - LEFT THUMB Denies: Hx Rheumatoid Arthritis Sensory History: Denies: Hx Cataracts, Hx Contacts or Glasses, Hx Vision Problem, Hx Deafness , Hx Hearing Aid Opthamlomology History: Denies: Hx Cataracts, Hx Contacts or Glasses, Hx Vision Problem Neurological History: Denies: Hx Dementia, Hx Headaches, Hx Migraine Psychiatric History: Reports: Hx Anxiety - ON MEDICATION, Hx Depression Denies: Hx Panic Disorder - Cancer History Hx Chemotherapy: No Hx Radiation Therapy: No - Surgical History Surgery Procedure, Year, and Place: shunt placement 2013-HEAD FOR SPINAL MENINGITIS NOW REMOVED. BILATERAL CARPAL TUNNEL. GALLBLADDER. TUBAL LIGATION. LEFT THUMB SURGERY. X2 Hx Anesthesia Reactions: No - Immunization History Date of Tetanus Vaccine: Unk Date of Influenza Vaccine: None Hx Pertussis Vaccination: Yes Immunizations Up to Date: Yes Infectious Disease History: No Infectious Disease History: Denies: Hx Clostridium Difficile, Hx Hepatitis, Hx Human Immunodeficiency Virus (HIV), Hx of Known/Suspected MRSA, Hx Shingles, Hx Tuberculosis, Hx Known/ Suspected VRE, Hx Known/Suspected VRSA, History Other Infectious Disease, Traveled Outside the [place] in Last 30 Days - Social History Occupation: Unemployed Lives: With Family Alcohol Use: None Hx Substance Use: Yes Substance Use Type: Reports: Marijuana Substance Use Comment - Amount & Last Used: opiates-last use 03/20/2018 Hx Tobacco Use: Yes Smoking Status (MU): Heavy Every Day Tobacco Smoker Review of Systems Positive: Chills. Negative: Fever, Fatigue, Skin Diaphoresis Negative: Palpitations, Chest Pain Positive: Shortness Of Breath, Cough Negative: Arthralgia, Myalgia Negative: Headache, Weakness Negative: Anxious All Other Systems Reviewed And Are Negative: Yes Physical Exam Triage Information Reviewed: Yes Vital Signs On Initial Exam: Initial Vitals Temp Pulse Resp BP Pulse Ox 98.0 F 92 20 136/100 92 03/28/18 10:58 03/28/18 10:58 03/28/18 10:58 03/28/18 10:58 03/28/18 10:58 Vital Signs Reviewed: Yes Appearance: Positive: Ill-Appearing Skin: Positive: Skin Color Reflects Adequate Perfusion Neck: Positive: Supple. Negative: No Lymphadenopathy Respiratory/Lung Sounds: Positive: Wheezes - bilaterally Cardiovascular: Positive: RRR, Pulses are Symmetrical in both Upper and Lower Extremities Musculoskeletal: Positive: Normal, Strength/ROM Intact Neurological: Positive: Sensory/Motor Intact, Alert, Oriented to Person Place, Time Psychiatric: Positive: Affect/Mood Appropriate AVPU Assessment: Alert Diagnostics - Vital Signs Vital Signs Temp Pulse Resp BP Pulse Ox 03/28/18 13:56 98 F 82 23 112/69 92 03/28/18 13:21 85 27 112/69 96 03/28/18 13:00 82 32 96 03/28/18 12:51 82 18 131/88 94 03/28/18 12:25 81 19 126/107 94 03/28/18 12:21 85 18 126/107 89 03/28/18 12:00 87 22 93 03/28/18 11:51 83 21 142/85 93 03/28/18 11:28 82 28 94 03/28/18 11:21 89 25 129/91 91 03/28/18 11:14 84 25 91 03/28/18 10:58 98.0 F 92 20 136/100 92 - Laboratory Lab Results: Lab Results 03/28/18 03/28/18 03/28/18 Range/Units 11:16 11:16 11:16 WBC 7.6 (3.5-10.8) 10^3/ul RBC 4.78 (4.00-5.40) 10^6/ul Hgb 14.3 (12.0-16.0) g/dl Hct 43 (35-47) % MCV 89 (80-97) fL MCH 30 (27-31) pg MCHC 34 (31-36) g/dl RDW 14 (10.5-15) % Plt Count 233 (150-450) 10^3/ul MPV 8.6 (7.4-10.4) um3 Neut % (Auto) 83.4 H (38-83) % Lymph % (Auto) 9.5 L (25-47) % [place] % (Auto) 6.2 (0-7) % Eos % (Auto) 0.4 (0-6) % Baso % (Auto) 0.5 (0-2) % Absolute Neuts (auto) 6.4 (1.5-7.7) 10^3/ul Absolute Lymphs (auto) 0.7 L (1.0-4.8) 10^3/ul Absolute Monos (auto) 0.5 (0-0.8) 10^3/ul Absolute Eos (auto) 0 (0-0.6) 10^3/ul Absolute Basos (auto) 0 (0-0.2) 10^3/ul Absolute Nucleated RBC 0 10^3/ul Nucleated RBC % 0 Sodium 139 (135-145) mmol/L Potassium 3.6 (3.5-5.0) mmol/L Chloride 105 (101-111) mmol/L Carbon Dioxide 23 (22-32) mmol/L Anion Gap 11 (2-11) mmol/L BUN 8 (6-24) mg/dL Creatinine 0.58 (0.51-0.95) mg/dL Est GFR ( Amer) 132.6 (>60) Est GFR (Non-Af Amer) 109.6 (>60) BUN/Creatinine Ratio 13.8 (8-20) Glucose 99 (70-100) mg/dL Lactic Acid 0.7 (0.5-2.0) mmol/L Calcium 9.3 (8.6-10.3) mg/dL Total Bilirubin 0.40 (0.2-1.0) mg/dL AST 17 (13-39) U/L ALT 19 (7-52) U/L Alkaline Phosphatase 101 (34-104) U/L C-React Prot High Sens 80.79 H (<2.00) mg/L Total Protein 7.4 (6.4-8.9) g/dL Albumin 3.7 (3.2-5.2) g/dL Globulin 3.7 (2-4) g/dL Albumin/Globulin Ratio 1.0 (1-3) Result Diagrams: 03/28/18 11:16 03/28/18 11:16 Lab Statement: Any lab studies that have been ordered have been reviewed, and results considered in the medical decision making process. Course/Dx - Course Course Of Treatment: During the course treatment, the patient is given 125 mg IV methylprednisolone, Zofran, ibuprofen, 1 L normal saline and 1 DuoNeb. On reexamination, patient states SOB improved, however cough remains. She continues to deny any fevers, sweats, chills. Vital signs have remained stable throughout her stay. She will be discharged home with a steroid taper for COPD exacerbation. However, due to her comorbidities and COPD exacerbation, she will also be placed on Levaquin. She understands strict return precautions and she will continue her DuoNeb nebs at home for relief. - Diagnoses Differential Diagnosis/HQI/PQRI: Positive: Asthma, Bronchitis, Pneumonia Provider Diagnoses: COPD exacerbation Discharge - Sign-Out/Discharge Documenting (check all that apply): Patient Departure - Discharge Plan Condition: Stable Disposition: HOME Prescriptions: Levofloxacin TAB* [Levaquin TAB*] 500 mg PO DAILY #5 tab predniSONE TAB* [Deltasone TAB*] 50 mg PO DAILY #5 tab MDD 1 Referrals: Dong Allred MD [Primary Care Provider] - Additional Instructions: Please follow up with PCP Levaquin x 5 days - one tab daily Prednisone 50mg once daily x 5 days Continue with your inhaler treatments at home - Billing Disposition and Condition Condition: STABLE Disposition: Home
== END 2018-03-28 13:56 | disposition home or self-care (01) ==
LOC: ED 10:40
DX: J44.1 Chronic obstructive pulmonary disease with (acute) exacerbation (principal); F17.200 Nicotine dependence, unspecified, uncomplicated
CPT/HCPCS: 36415; 71046; 80053; 83605; 85025; 86141; 93005; 96361; 96374; 96375; 99283; A9270-GY; J2405; J2930

== ENCOUNTER 2019-01-12 22:16 | Emergency (ER) | payer MEDICARE, OTHER ==
--- OUTSIDE RECORDS SUMMARY | 2019-01-12 22:51 | XMS REPORT ---
:1965 Author Organization [facility] Care Team Providers Name Role Phone Sandro Mcconnell Unavailable Unavailable PROBLEMS Unknown Problems ALLERGIES No Information ENCOUNTERS Encounter Location Date Diagnosis [address] [address] Mar, [address] [address] Feb, [address] [address] Jan, [address] [address] Jan, [address] [address] December, [address] Nov, [address] Jun, [address] Jun, [address] IMMUNIZATIONS No Known Immunizations SOCIAL HISTORY Never Assessed REASON FOR REFERRAL FUNCTIONAL STATUS PLAN OF CARE VITAL SIGNS MEDICATIONS Unknown Medications PROCEDURES Procedure Date Ordered Result Body Site INTRAORL - CMPL SERIES CODE [id number] January 02, 2019 COMP ORAL EVAL- NEW EST PT January 02, 2019 RESULTS No Results REASON FOR VISIT look and see gingival tissuse Insurance Providers [facility] Health Member Patient Patient Patient Patient Patient Subscriber Subscriber Subscriber Group Insurance Plan Plan Plan Plan ID Relationship Address Phone Name Date of ID Name Date of No Type Insurance Insurance Insurance Coverage to Subscriber Address Phone Name Dates Roc AGUILA [phone] Roc Best [id number] Dual [place] [address] [place] [address] [facility] Blue [address] Blue self Estephania [id number] Choice Opt [id number] Opt n 4 Medical [facility] [address] [address] Roc self Estephania [id number] Dual [id number] [place] [facility] [place] [address] Dental Blue [phone] Blue self Estephania [id number] Choice [id number] Choice Opt n [id number] Mohave Claims [id number] Moh[place] [facility] [address] [phone] Medicaid self Estephania [id number] Wrap [facility] [address] [id number] [place]
[2019-01-13] MEDS ORDERED: oxyCODONE TAB* 5 MG TAB PO ONE (00:40)
--- NOTE | 2019-01-13 00:43 | ED ---
Upper Extremity Pain - HPI Summary HPI Summary: Patient complains of left wrist pain after twisting it today. History of left wrist surgery in September 2018. Patient states she hyperextended left wrist. Also admits to existing deformity of left wrist status post surgery. Pain rated 8/10. Denies any other pain injury or symptoms. Orthopedist Dr. Jeff Joyce - History of Current Complaint Chief Complaint: EDExtremityUpper Stated Complaint: "LT HAND INJURY PER PT" Time Seen by Provider: 01/13/19 00:00 Hx Obtained From: Patient Mechanism Of Injury: Twisted Onset/Duration: Started Hours Ago Timing: Constant Severity Initially: Severe Severity Currently: Severe Pain Location: Wrist Character: Aching, Throbbing Aggravating Factor(s): Movement Alleviating Factor(s): Nothing Associated Signs & Symptoms: Positive: Swelling - Allergies/Home Medications Allergies/Adverse Reactions: Allergies Allergy/AdvReac Type Severity Reaction Status Date / Time No Known Allergies Allergy Verified 01/12/19 22:19 PMH/Surg Hx/FS Hx/Imm Hx Endocrine/Hematology History: Denies: Hx Diabetes, Hx Systemic Lupus Erythematosus Cardiovascular History: Denies: Hx Congestive Heart Failure, Hx Hypertension, Hx Pacemaker/ICD Respiratory History: Reports: Hx Asthma, Other Respiratory Problems/Disorders - OCCASIONAL WHEEZING, NONE TODAY, SMOKER Denies: Hx Pneumonia GI History: Reports: Hx Gall Bladder Disease - gall bladder removed, Hx Gastroesophageal Reflux Disease - HISTORY OF WITH NO PROBLEMS SINCE CHOLECYSTECTOMY Denies: Hx Ulcer History: Denies: Hx Dialysis, Hx Renal Disease Musculoskeletal History: Reports: Hx Arthritis - LEFT THUMB Denies: Hx Rheumatoid Arthritis Sensory History: Denies: Hx Cataracts, Hx Contacts or Glasses, Hx Vision Problem, Hx Deafness , Hx Hearing Aid Opthamlomology History: Denies: Hx Cataracts, Hx Contacts or Glasses, Hx Vision Problem Neurological History: Denies: Hx Dementia, Hx Headaches, Hx Migraine Psychiatric History: Reports: Hx Anxiety - ON MEDICATION, Hx Depression Denies: Hx Panic Disorder - Cancer History Hx Chemotherapy: No Hx Radiation Therapy: No - Surgical History Surgery Procedure, Year, and Place: shunt placement 2013-HEAD FOR SPINAL MENINGITIS NOW REMOVED. BILATERAL CARPAL TUNNEL. GALLBLADDER. TUBAL LIGATION. LEFT THUMB SURGERY. X2 Hx Anesthesia Reactions: No - Immunization History Date of Tetanus Vaccine: Unk Date of Influenza Vaccine: None Infectious Disease History: No Infectious Disease History: Denies: Hx Clostridium Difficile, Hx Hepatitis, Hx Human Immunodeficiency Virus (HIV), Hx of Known/Suspected MRSA, Hx Shingles, Hx Tuberculosis, Hx Known/ Suspected VRE, Hx Known/Suspected VRSA, History Other Infectious Disease, Traveled Outside the [place] in Last 30 Days - Family History Known Family History: Positive: Non-Contributory - Social History Alcohol Use: None Hx Substance Use: Yes Substance Use Type: Reports: Marijuana Substance Use Comment - Amount & Last Used: opiates-last use 03/20/2018 Hx Tobacco Use: Yes Smoking Status (MU): Heavy Every Day Tobacco Smoker Review of Systems Constitutional: Negative Eyes: Negative ENT: Negative Cardiovascular: Negative Respiratory: Negative Gastrointestinal: Negative Genitourinary: Negative Musculoskeletal: Other Skin: Negative Neurological: Negative Psychological: Normal All Other Systems Reviewed And Are Negative: Yes Physical Exam - Summary Physical Exam Summary: Mild swelling to left wrist.. No ecchymosis, erythema, extra warmth noted. Full range of motion with some pain. Existing deformity to left wrist. PMS intact distally. 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 Triage Information Reviewed: Yes Vital Signs On Initial Exam: Initial Vitals Temp Pulse Resp BP Pulse Ox 97.4 F 85 16 129/81 96 01/12/19 22:17 01/12/19 22:17 01/12/19 22:17 01/12/19 22:17 01/12/19 22:17 Vital Signs Reviewed: Yes Appearance: Positive: Well-Appearing Skin: Positive: Warm Head/Face: Positive: Normal Head/Face Inspection Eyes: Positive: Normal Neck: Positive: Supple Respiratory/Lung Sounds: Positive: Clear to Auscultation Cardiovascular: Positive: Normal Abdomen Description: Positive: Nontender Musculoskeletal: Positive: Normal Neurological: Positive: Normal Psychiatric: Positive: Normal AVPU Assessment: Alert - [place] Coma Scale Best Eye Response: 4 - Spontaneous Best Motor Response: 6 - Obeys Commands Best Verbal Response: 5 - Oriented Coma Scale Total: 15 Procedures - Splinting 1 Location: left wrist Hand-Made Type: orthoglass Splint: sugar-tong Pre-Proc Neuro Vasc Exam: normal Post-Proc Neuro Vasc Exam: normal Diagnostics - Vital Signs Vital Signs Temp Pulse Resp BP Pulse Ox 01/12/19 22:17 97.4 F 85 16 129/81 96 - Laboratory Lab Statement: Any lab studies that have been ordered have been reviewed, and results considered in the medical decision making process. Course/Dx - Course Course Of Treatment: Patient complains of left wrist pain after twisting it today. History of left wrist surgery in September 2018. Patient states she hyperextended left wrist. Also admits to existing deformity of left wrist status post surgery. Pain rated 8/10. Denies any other pain injury or symptoms. Orthopedist Dr. Jeff Joyce. Physical exam:Mild swelling to left wrist.. No ecchymosis, erythema, extra warmth noted. Full range of motion with some pain. Existing deformity to left wrist. PMS intact distally. 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 Vital signs within normal limits. X-ray positive for deformity, unknown whether deformity from prior surgery or acute fracture. Sugar tong splint placed. Follow-up with orthopedist in [place]. Patient understands and approves of plan. - Diagnoses Provider Diagnoses: Wrist pain, acute Discharge - Sign-Out/Discharge Documenting (check all that apply): Patient Departure Patient Received Moderate/Deep Sedation with Procedure: No - Discharge Plan Condition: Stable Disposition: HOME Prescriptions: Oxycodone HCl 5 mg PO TID 1 Days #3 tablet MDD 3 tabs Patient Education Materials: Wrist Injury (ED) Referrals: Alejandro PAZ,Kahlil Salomon [Primary Care Provider] - Additional Instructions: Follow-up with your orthopedic doctor in [place]. Ice and ibuprofen will help with pain and swelling. Return to the ED for any new or worsening symptoms. - Billing Disposition and Condition Condition: STABLE Disposition: Home
[2019-01-13 01:44] VITALS: BP 126/55
== END 2019-01-13 01:42 | disposition home or self-care (01) ==
LOC: ED 22:16
DX: M25.532 Pain in left wrist (principal); F41.9 Anxiety disorder, unspecified; F17.200 Nicotine dependence, unspecified, uncomplicated
CPT/HCPCS: 99282; A9270-GY

== ENCOUNTER 2020-07-30 08:33 | Inpatient (IN) ==
[2020-07-30] MEDS ORDERED: NS 0.9% 1000 ml BAG 1,000 ML IV ONE ×2 (09:05→10:47)
[2020-07-30 09:51] LABS: ABS Lymphocytes 0.8 10^3/ul (1.0-4.8); ABS Monocytes 0.5 10^3/ul (0-0.8); ABS Neutrophils 5.6 10^3/ul (1.5-7.7); Hematocrit 45 % (35-47); Hemoglobin 14.5 g/dL (12.0-16.0); Mean Corpuscular HGB Conc 32 g/dL (31-36); Mean Corpuscular Hemoglobin 31 pg (27-31); Mean Corpuscular Volume 97 fL (80-97); Mean Platelet Volume 8.4 fL (7.4-10.4); Nucleated Red Blood Cells % 0.2; Platelet Count 214 10^3/uL (150-450); Red Blood Count 4.66 10^6 /uL (3.70-4.87); Red Cell Distribution Width 17 % (10-15)
[2020-07-30 10:05] LABS: Influenza A Molecular Negative (Negative); Influenza B Molecular Negative (Negative)
[2020-07-30 10:08] LABS: ALT 19 U/L (7-52); Albumin 3.7 g/dL (3.2-5.2); Albumin/Globulin Ratio 1.1 (1-3); Alkaline Phosphatase 123 U/L (34-104); BUN/Creatinine Ratio 15.2 (8-20); Blood Urea Nitrogen 16 mg/dL (6-24); CO2 Carbon Dioxide 30 mmol/L (22-32); Calcium 8.9 mg/dL (8.6-10.3); Chloride 98 mmol/L (101-111); EGFR African American 66.3 (>60); EGFR Non-African American 54.8 (>60); Globulin 3.5 g/dL (2-4); Glucose 122 mg/dL (70-100); Sodium 131 mmol/L (135-145); Total Protein 7.2 g/dL (6.4-8.9)
[2020-07-30 10:12] LABS: Urine Appearance Cloudy; Urine Bilirubin Negative (Negative); Urine Blood 1+ (Negative); Urine Color Yellow; Urine Glucose Negative (Negative); Urine Ketones Trace (Negative); Urine Nitrite Negative (Negative); Urine Protein 2+(100 mg/dL) (Negative); Urine Specific Gravity 1.021 (1.010-1.030); Urine Urobilinogen Negative (Negative)
[2020-07-30 10:16] LABS: Troponin I 0.06 ng/mL (<0.03)
[2020-07-30 10:17] LABS: Urine Bacteria Absent (Absent); Urine Granular Casts Present (Absent); Urine Red Blood Cell 2+(6-10/hpf) (Absent); Urine Squamous Epithelial Cell Present (Absent); Urine White Blood Cell 1+(6-10/hpf) (Absent)
[2020-07-30 10:23] LABS: Acetaminophen < 15 mcg/mL; Alcohol, S 10 mg/dL (<10); Salicylate < 2.50 mg/dL (<30)
[2020-07-30 10:38] LABS: TSH Ultra Thyroid Stim Horm 0.35 mcIU/mL (0.34-5.60)
[2020-07-30] MEDS ORDERED: cefTRIAXone 1 gm/50 mL NS BAG 1 GM/50 ML BAG IV ONE (10:47)
[2020-07-30] MEDS ORDERED: Azithromycin 500 mg/250 ml NS 500 MG/250 ML BAG IVPB ONE (10:47)
[2020-07-30 11:23] LABS: Anion Gap 3 mmol/L (2-11)
[2020-07-30 11:26] LABS: C Reactive Protein 11.97 mg/L (<8.01)
[2020-07-30] MEDS ORDERED: NS 0.9% 1000 ml BAG 1,000 ML IV SCH (11:45)
[2020-07-30] MEDS ORDERED: Nicotine PATCH 21 MG/24 HR PATCH TRANSDERM ONE (11:58)
[2020-07-30] MEDS ORDERED: Albuterol HFA INHALER 8 gm MDI INH PRN (12:01)
[2020-07-30] MEDS ORDERED: Mometasone/Formoter 200/5 MDI INH PRN (12:01)
[2020-07-30] MEDS ORDERED: Iodixanol (CONTRAST) 320 MG/ML 100 ML SDV IV ONE (12:46)
[2020-07-30 12:47] LABS: Potassium Redraw 5.2 mmol/L (3.5-5.0)
[2020-07-30 12:47] LABS: Urine Benzodiazepine Screen None Detected (None Detect); Urine Cannabinoids Screen Presumptive Positive (None Detect); Urine Opiates Screen None Detected (None Detect)
[2020-07-30 12:48] LABS: Erythrocyte Sed Rate 7 mm/Hr (0-29)
[2020-07-30] MEDS: Enoxaparin 40 MG/0.4 ML SYR SUBCUT SCH (15:24)
[2020-07-30] MEDS: Mometasone/Formoter 200/5 MDI INH SCH ×2 (20:14→20:15)
[2020-07-30 20:51] LABS: Troponin I 0.04 ng/mL (<0.03)
[2020-07-30] MEDS ORDERED: Buprenorp/Nalox 8-2 MG FILM SL FILM SCH (21:00)
[2020-07-30 23:21] LABS: Troponin I 0.07 ng/mL (<0.03)
[2020-07-30 23:22] LABS: Troponin I 0.05 ng/mL (<0.03)
[2020-07-31] MEDS: Mometasone/Formoter 200/5 MDI INH SCH ×2 (08:14→19:33)
[2020-07-31] MEDS: cefTRIAXone 1 gm/50 mL NS BAG 1 GM/50 ML BAG IVPB SCH (08:45)
[2020-07-31] MEDS: DULoxetine DR 60 mg CAP PO SCH (08:47)
[2020-07-31] MEDS: Buprenorp/Nalox 4-1 MG FILM SL FILM SCH (08:48)
[2020-07-31] MEDS: Nicotine PATCH 21 MG/24 HR PATCH TRANSDERM SCH ×2 (08:49→11:39)
[2020-07-31 09:07] LABS: ABS Lymphocytes 1.1 10^3/ul (1.0-4.8); ABS Monocytes 0.6 10^3/ul (0-0.8); ABS Neutrophils 7.1 10^3/ul (1.5-7.7); Eosinophil % 0.1 %; Hematocrit 43 % (35-47); Hemoglobin 13.8 g/dL (12.0-16.0); Mean Corpuscular HGB Conc 32 g/dL (31-36); Mean Corpuscular Hemoglobin 31 pg (27-31); Mean Corpuscular Volume 96 fL (80-97); Nucleated Red Blood Cells % 0.1; Platelet Count 186 10^3/uL (150-450); Red Blood Count 4.46 10^6 /uL (3.70-4.87); Red Cell Distribution Width 16 % (10-15); White Blood Count 8.9 10^3/uL (3.5-10.8)
[2020-07-31 09:24] LABS: Ammonia 49 mcmol/L (16-53); BUN/Creatinine Ratio 15.9 (8-20); C Reactive Protein 18.26 mg/L (<8.01); Calcium 8.5 mg/dL (8.6-10.3); EGFR African American 107.7 (>60)
[2020-07-31] MEDS: Enoxaparin 40 MG/0.4 ML SYR SUBCUT SCH (11:39)
[2020-07-31 12:03] LABS: BNP 210 pg/mL (<=100)
[2020-08-01] MEDS: Mometasone/Formoter 200/5 MDI INH SCH (08:13)
[2020-08-01] MEDS ORDERED: Perflutren Lipid Microsphere 3 ML VIAL ONE (08:47)
[2020-08-01] MEDS: Nicotine PATCH 21 MG/24 HR PATCH TRANSDERM SCH (08:57)
[2020-08-01] MEDS: cefTRIAXone 1 gm/50 mL NS BAG 1 GM/50 ML BAG IVPB SCH (08:57)
[2020-08-01] MEDS: DULoxetine DR 60 mg CAP PO SCH (08:57)
[2020-08-01] MEDS: Buprenorp/Nalox 4-1 MG FILM SL FILM SCH (08:57)
[2020-08-01 11:37] VITALS: BP 120/88
== END 2020-08-01 13:00 | disposition home or self-care (01) | DRG 193 ==
LOC: ED 08:33 → MED 11:45 → MEDTELE 07-31 21:54
PROVIDERS: ADMIT Internal Medicine; ATTEND Internal Medicine

== ENCOUNTER 2023-05-21 05:35 | Inpatient (IN) ==
[2023-05-21] MEDS ORDERED: cefTRIAXone 1 gm/50 mL D5W 1 GM/50 ML BAG IV ONE (05:54)
[2023-05-21] MEDS ORDERED: methylPREDNISolone SOD SUCC 125 mg 2 ML VIAL IV ONE (05:59)
[2023-05-21] MEDS ORDERED: Albuterol/Ipratropium NEB.SOL (2.5/0.5 MG) 3 ML NEB.SOLN INH ONE (05:59)
[2023-05-21] MEDS ORDERED: Albuterol 0.5% CONC CONTINUOUS NEB.SOL 5 mg/ml 20 ml BOT INH SCH (06:00)
[2023-05-21 06:12] LABS: ABS Monocytes 0.7 10^3/uL (0.0-0.9); ABS Neutrophils 7.5 10^3/uL (1.5-7.6); ABS Nucleated RBC 0.02 10^3/ul; Hematocrit 47.1 % (35-45); Hemoglobin 15.8 g/dL (11.5-14.3); Lymphocyte % 10.6 %; Mean Corpuscular Hemoglobin 31.6 pg (27-33); Mean Corpuscular Hgb Conc 33.4 g/dL (31-36); Mean Corpuscular Volume 94.4 fL (80-97); Mean Platelet Volume 10.1 fL (7.5-11.2); Nucleated Red Blood Cells % 0.2 /100 WBC (0.0-0.4); Platelet Count 209 10^3/uL (150-450); Red Blood Count 4.99 10^6/uL (3.63-4.92); Red Cell Distribution Width 14.8 % (12-17); White Blood Count 9.2 10^3/uL (3.8-11.8)
[2023-05-21] MEDS ORDERED: NS 0.9% 1000 ml BAG 1,000 ML IV SCH (06:15)
[2023-05-21] MEDS: Albuterol 2.5mg/3 ml (0.083%) NEB.SOLN INH SCH ×2 (06:20→07:10)
[2023-05-21] MEDS ORDERED: Albuterol 2.5mg/3 ml (0.083%) NEB.SOLN INH ONE (06:20)
[2023-05-21 06:21] LABS: PO2 Arterial 323 mmHg (80-100)
[2023-05-21 06:22] LABS: Activated Partial Thrombo Time 33.7 seconds (26.0-38.0); INR 0.97 (0.83-1.13)
[2023-05-21 06:31] LABS: Albumin 4.3 g/dL (3.2-5.2); CO2 Carbon Dioxide 25 mmol/L (22-32); Calcium 8.9 mg/dL (8.6-10.3); Chloride 95 mmol/L (101-111); Sodium 128 mmol/L (135-145)
[2023-05-21 06:34] LABS: High Sens Troponin Baseline 7 pg/mL (<15)
[2023-05-21 06:36] LABS: PCO2 Arterial 80 mmHg (35-45)
[2023-05-21 06:37] LABS: ALT 29 U/L (7-52); Albumin/Globulin Ratio 1.2 (1-3); Alkaline Phosphatase 95 U/L (35-149); Blood Urea Nitrogen 11 mg/dL (6-24); C Reactive Protein 23.08 mg/L (<8.01); Creatinine, Serum 0.64 mg/dL (0.51-0.95); Globulin 3.7 g/dL (2-4); Glucose 110 mg/dL (70-100); eGFR CKD-EPI 103.7 (>60)
[2023-05-21 06:44] LABS: Anion Gap 8 mmol/L (2-16)
[2023-05-21] MEDS ORDERED: Azithromycin 500 mg/250 ml NS 500 MG/250 ML BAG IVPB ONE (06:48)
[2023-05-21] MEDS ORDERED: Albuterol 2.5mg/3 ml (0.083%) NEB.SOLN INH PRN (07:21)
[2023-05-21] MEDS ORDERED: Ondansetron 4 mg VIAL 2 MG/ML 2 ml VIAL IV PRN (07:21)
[2023-05-21 07:43] LABS: Resp Rate 8
[2023-05-21 07:45] LABS: PCO2 Arterial 73 mmHg (35-45); PO2 Arterial 74 mmHg (80-100)
[2023-05-21 08:28] LABS: Potassium Redraw 4.4 mmol/L (3.5-5.0)
[2023-05-21] MEDS: Enoxaparin 40 MG/0.4 ML SYR SUBCUT SCH (08:48)
[2023-05-21] MEDS ORDERED: DOXYcycline 100 MG in NS 0.9% 250 ml 250 ML IVPB SCH (09:00)
[2023-05-21] MEDS ORDERED: Buprenorp/Nalox 12-3 MG FILM SL SCH (09:13)
[2023-05-21 09:24] LABS: High Sensitivity Troponin 1 Hr 9 pg/mL (<15)
[2023-05-21] MEDS: DULoxetine DR 60 mg CAP PO SCH (11:17)
[2023-05-21] MEDS: Albuterol/Ipratropium NEB.SOL (2.5/0.5 MG) 3 ML NEB.SOLN INH SCH ×3 (11:53→18:44)
[2023-05-21 12:32] LABS: Resp Rate 18
[2023-05-21 12:36] LABS: PCO2 Arterial 62 mmHg (35-45); PO2 Arterial 80 mmHg (80-100)
[2023-05-21] MEDS: methylPREDNISolone SOD SUCC 125 mg 2 ML VIAL IV SCH ×2 (14:43→21:48)
[2023-05-21 16:41] LABS: Venous Bicarbonate HCO3 25.1 mmol/L (24-28)
[2023-05-21 16:45] LABS: Urine Appearance Cloudy; Urine Bacteria Absent (Absent); Urine Bilirubin Negative (Negative); Urine Blood 1+ (Negative); Urine Color Yellow; Urine Glucose Negative (Negative); Urine Ketones Negative (Negative); Urine Nitrite Positive (Negative); Urine Protein 2+(100 mg/dL) (Negative); Urine Red Blood Cell 3+(>10/hpf) (Absent); Urine Specific Gravity 1.017 (1.002-1.030); Urine Squamous Epithelial Cell Present (Absent); Urine Urobilinogen Negative (Negative); Urine White Blood Cell 3+(>20/hpf) (Absent)
[2023-05-21] MEDS ORDERED: Naloxone 4 mg VIAL 0.4 MG/ML 10 ml VIAL (4 mg) ONE (17:01)
[2023-05-21] MEDS ORDERED: Furosemide 20 mg/2 ml IV VIAL IV SLOW PU ONE (17:17)
[2023-05-21] MEDS ORDERED: Naloxone 0.4 mg VIAL 0.4 mg/ml 1 ml VIAL IV PUSH ONE (17:19)
[2023-05-21 20:49] LABS: Urine Benzodiazepine Screen None Detected (None Detect); Urine Cannabinoids Screen Presumptive Positive (None Detect); Urine Opiates Screen None Detected (None Detect)
[2023-05-21] MEDS: DOXYcycline 100 MG in NS 0.9% 250 ml 250 ML IVPB SCH (21:44)
[2023-05-22 01:02] LABS: PCO2 Arterial 62 mmHg (35-45); PO2 Arterial 92 mmHg (80-100)
[2023-05-22 04:42] LABS: ABS Lymphocytes 0.6 10^3/uL (1.0-4.8); ABS Monocytes 0.1 10^3/uL (0.0-0.9); ABS Neutrophils 6.2 10^3/uL (1.5-7.6); ABS Nucleated RBC 0.02 10^3/ul; Hematocrit 43.3 % (35-45); Hemoglobin 14.3 g/dL (11.5-14.3); Lymphocyte % 8.2 %; Mean Corpuscular Hemoglobin 31.2 pg (27-33); Mean Corpuscular Hgb Conc 32.9 g/dL (31-36); Mean Corpuscular Volume 94.9 fL (80-97); Mean Platelet Volume 9.3 fL (7.5-11.2); Nucleated Red Blood Cells % 0.3 /100 WBC (0.0-0.4); Platelet Count 182 10^3/uL (150-450); Red Blood Count 4.56 10^6/uL (3.63-4.92); Red Cell Distribution Width 15.1 % (12-17); White Blood Count 6.9 10^3/uL (3.8-11.8)
[2023-05-22 04:55] LABS: Blood Urea Nitrogen 16 mg/dL (6-24); CO2 Carbon Dioxide 32 mmol/L (22-32); Calcium 8.6 mg/dL (8.6-10.3); Chloride 100 mmol/L (101-111); Glucose 112 mg/dL (70-100); Magnesium 2.1 mg/dL (1.9-2.7); Sodium 132 mmol/L (135-145); eGFR CKD-EPI 101.4 (>60)
[2023-05-22 05:38] LABS: Phosphorus 2.6 mg/dL (2.5-5.0); Potassium Redraw 4.7 mmol/L (3.5-5.0)
[2023-05-22] MEDS: methylPREDNISolone SOD SUCC 125 mg 2 ML VIAL IV SCH ×3 (05:45→20:16)
[2023-05-22] MEDS: Albuterol/Ipratropium NEB.SOL (2.5/0.5 MG) 3 ML NEB.SOLN INH SCH ×5 (07:45→23:04)
[2023-05-22] MEDS: cefTRIAXone 1 gm/50 mL D5W 1 GM/50 ML BAG IV SCH (08:01)
[2023-05-22] MEDS: DOXYcycline 100 MG in NS 0.9% 250 ml 250 ML IVPB SCH ×2 (08:25→22:43)
[2023-05-22] MEDS: Enoxaparin 40 MG/0.4 ML SYR SUBCUT SCH (08:29)
[2023-05-22] MEDS: DULoxetine DR 60 mg CAP PO SCH (08:31)
[2023-05-22] MEDS ORDERED: cefTRIAXone 1 gm/50 mL D5W 1 GM/50 ML BAG IV SCH (09:00)
[2023-05-22] MEDS: Albuterol (2.5 MG) 0.5 % CONC 0.5 ML NEB.SOLN INH SCH ×2 (09:11→10:58)
[2023-05-22] MEDS ORDERED: Magnesium Sulfate 2 gm BAG 2 GM/50 ML BAG IVPB ONE (10:52)
[2023-05-22] MEDS ORDERED: Hyaluronidase 15 units/mL for Extravasation Intradermal Use INTRADERM ONE (23:00)
[2023-05-23] MEDS: Albuterol/Ipratropium NEB.SOL (2.5/0.5 MG) 3 ML NEB.SOLN INH SCH ×4 (02:30→19:28)
[2023-05-23] MEDS: methylPREDNISolone SOD SUCC 125 mg 2 ML VIAL IV SCH ×3 (05:48→21:37)
[2023-05-23 07:16] LABS: ABS Lymphocytes 0.6 10^3/uL (1.0-4.8); ABS Monocytes 0.2 10^3/uL (0.0-0.9); ABS Neutrophils 5.3 10^3/uL (1.5-7.6); ABS Nucleated RBC 0.01 10^3/ul; Hematocrit 42.5 % (35-45); Hemoglobin 14.2 g/dL (11.5-14.3); Lymphocyte % 9.7 %; Mean Corpuscular Hemoglobin 31.2 pg (27-33); Mean Corpuscular Hgb Conc 33.3 g/dL (31-36); Mean Corpuscular Volume 93.5 fL (80-97); Mean Platelet Volume 8.5 fL (7.5-11.2); Nucleated Red Blood Cells % 0.2 /100 WBC (0.0-0.4); Platelet Count 139 10^3/uL (150-450); Red Blood Count 4.54 10^6/uL (3.63-4.92); Red Cell Distribution Width 14.4 % (12-17); White Blood Count 6.2 10^3/uL (3.8-11.8)
[2023-05-23 07:38] LABS: Calcium 8.7 mg/dL (8.6-10.3); Creatinine, Serum 0.71 mg/dL (0.51-0.95); Magnesium 2.4 mg/dL (1.9-2.7); eGFR CKD-EPI 99.7 (>60)
[2023-05-23 08:15] LABS: Potassium 4.3 mmol/L (3.5-5.0)
[2023-05-23] MEDS: DULoxetine DR 60 mg CAP PO SCH (09:57)
[2023-05-23] MEDS: Enoxaparin 40 MG/0.4 ML SYR SUBCUT SCH (09:59)
[2023-05-23] MEDS: cefTRIAXone 1 gm/50 mL D5W 1 GM/50 ML BAG IV SCH (10:05)
[2023-05-24] MEDS: Albuterol/Ipratropium NEB.SOL (2.5/0.5 MG) 3 ML NEB.SOLN INH SCH ×4 (01:23→19:31)
[2023-05-24] MEDS: methylPREDNISolone SOD SUCC 125 mg 2 ML VIAL IV SCH (05:46)
[2023-05-24 07:52] LABS: ABS Lymphocytes 0.6 10^3/uL (1.0-4.8); ABS Monocytes 0.2 10^3/uL (0.0-0.9); ABS Neutrophils 4.7 10^3/uL (1.5-7.6); ABS Nucleated RBC 0.01 10^3/ul; Hematocrit 44.1 % (35-45); Lymphocyte % 10.6 %; Mean Corpuscular Hemoglobin 31.2 pg (27-33); Mean Corpuscular Hgb Conc 33.9 g/dL (31-36); Mean Corpuscular Volume 92.2 fL (80-97); Mean Platelet Volume 8.2 fL (7.5-11.2); Nucleated Red Blood Cells % 0.2 /100 WBC (0.0-0.4); Platelet Count 138 10^3/uL (150-450); Red Blood Count 4.79 10^6/uL (3.63-4.92); Red Cell Distribution Width 14.3 % (12-17); White Blood Count 5.5 10^3/uL (3.8-11.8)
[2023-05-24] MEDS: Enoxaparin 40 MG/0.4 ML SYR SUBCUT SCH (08:14)
[2023-05-24] MEDS: cefTRIAXone 1 gm/50 mL D5W 1 GM/50 ML BAG IV SCH (08:23)
[2023-05-24] MEDS: DULoxetine DR 60 mg CAP PO SCH (08:25)
[2023-05-24 08:45] LABS: Calcium 8.9 mg/dL (8.6-10.3); Creatinine, Serum 0.68 mg/dL (0.51-0.95); Magnesium 2.1 mg/dL (1.9-2.7); Potassium 4.4 mmol/L (3.5-5.0); eGFR CKD-EPI 102.2 (>60)
[2023-05-24] MEDS: Buprenorp/Nalox 12-3 MG FILM SL SCH (09:48)
[2023-05-24] MEDS ORDERED: Ondansetron ODT 4 mg TAB 4 MG TAB SL PRN (11:36)
[2023-05-24 23:05] LABS: PCO2 Arterial 46 mmHg (35-45); PO2 Arterial 66 mmHg (80-100)
[2023-05-25] MEDS: Albuterol/Ipratropium NEB.SOL (2.5/0.5 MG) 3 ML NEB.SOLN INH SCH ×2 (00:33→07:11)
[2023-05-25 05:21] LABS: PCO2 Arterial 46 mmHg (35-45); PO2 Arterial 65 mmHg (80-100)
[2023-05-25 08:14] LABS: ABS Lymphocytes 0.9 10^3/uL (1.0-4.8); ABS Monocytes 0.4 10^3/uL (0.0-0.9); ABS Neutrophils 4.3 10^3/uL (1.5-7.6); Lymphocyte % 16.5 %; Mean Corpuscular Hemoglobin 31.4 pg (27-33); Mean Corpuscular Hgb Conc 34.1 g/dL (31-36); Mean Corpuscular Volume 92.1 fL (80-97); Mean Platelet Volume 8.5 fL (7.5-11.2); Platelet Count 135 10^3/uL (150-450); Red Blood Count 4.78 10^6/uL (3.63-4.92); Red Cell Distribution Width 14.3 % (12-17); White Blood Count 5.6 10^3/uL (3.8-11.8)
[2023-05-25 08:24] LABS: Calcium 8.9 mg/dL (8.6-10.3); Creatinine, Serum 0.79 mg/dL (0.51-0.95); Phosphorus 3.4 mg/dL (2.5-5.0); Potassium 4.3 mmol/L (3.5-5.0); eGFR CKD-EPI 87.7 (>60)
[2023-05-25] MEDS: DULoxetine DR 60 mg CAP PO SCH (08:42)
[2023-05-25] MEDS: Buprenorp/Nalox 12-3 MG FILM SL SCH (08:42)
[2023-05-25] MEDS: Enoxaparin 40 MG/0.4 ML SYR SUBCUT SCH (08:42)
[2023-05-25 12:50] VITALS: BP 131/110
== END 2023-05-25 13:01 | disposition home or self-care (01) | DRG 189 ==
LOC: ED 05:35 → EDHOLD 07:21 → ICU 12:32
PROVIDERS: ADMIT Hospitalist; ATTEND Student in an Organized Health Care Education/Training Program